=== PATIENT | female | born 1945 | race Caucasian/White ===

== ENCOUNTER 2016-04-19 11:21 | Inpatient (IN) | payer MEDICARE ==
[~2016-04-19] VITALS: Ht 172.7 cm; Wt 54.6 kg
[~2016-04-19 11:21] MED LIST: ATOR10TA65 PO; CITA20TA6 PO; RISP1TAB3 PO
[2016-04-19] MEDS ORDERED: IBUPROFEN 600 MG TAB PO ONE (11:30)
[2016-04-19] MEDS ORDERED: morphine 2 MG INJ IV STA (12:13)
[2016-04-19] MEDS ORDERED: ONDANSETRON 4 MG INJ IV STA (12:13)
[2016-04-19] MEDS ORDERED: SOD CHLORIDE 0.9% 500 ML IV STA (12:13)
[2016-04-19] MEDS ORDERED: AMLO5TAB4 PO (12:28)
[2016-04-19] MEDS ORDERED: DIVA250T4 PO (12:28)
[2016-04-19] MEDS ORDERED: QUET25TA33 PO (12:29)
[2016-04-19] MEDS ORDERED: PANT40TA3 PO (12:29)
--- NOTE | 2016-04-19 12:43 | RADRPT ---
PROCEDURE: Chest Radiograph. CLINICAL INDICATION: Chest pain TECHNIQUE: Single frontal chest radiograph. COMPARISON: Chest radiograph 06/25/2015 FINDINGS: The patient is rotated. Heart size is grossly within normal limits. No infiltrate or effusion is seen. The bones are intact. IMPRESSION: 1. No evidence of acute cardiopulmonary disease. RPTAT: KK .Lai Lerner MD, MD Date Time Electronically viewed and signed by .Lai Lerner MD, on 04/19/2016 12:42 .B/
--- NOTE | 2016-04-19 12:48 | RADRPT ---
PROCEDURE: XR Pelvis. CLINICAL INDICATION: Pain/injury TECHNIQUE: Single AP view performed. COMPARISON: No prior studies are available for comparison. FINDINGS: There is diffuse osteopenia. There is an acute right intertrochanteric fracture with a varus deform ity. There is been a previous ORIF of the left hip with an intramedullary suresh and a dynamic jenny leona screw. The sacroiliac joints are unremarkable. The soft tissues are unremarkable. IMPRESSION: Diffuse osteopenia Acute right intertrochanteric fracture with a varus deformity. Previous ORIF of the left hip with an intramedullary suresh and a dynamic compression screw RPTAT: HGDB .Tong Soares MD, Date Time Electronically viewed and signed by .Tong Soares MD, on 04/19/2016 12:48 .B/
--- NOTE | 2016-04-19 12:50 | RADRPT ---
PROCEDURE: XR right hip. CLINICAL INDICATION: Pain/injury TECHNIQUE: Two views available for review. COMPARISON: None available FINDINGS: There is diffuse osteopenia. There is an acute right intertrochanteric fracture with a varus deform ity. No osseous lesions are identified. The joints are unremarkable. The soft tissues are unremar kable. IMPRESSION: Diffuse osteopenia Acute right intertrochanteric fracture with a varus deformity RPTAT: DB .Tong Soares MD, MD Date Time Electronically viewed and signed by .Tong Soares MD, on 04/19/2016 12:50 .B/
--- NOTE | 2016-04-19 12:51 | RADRPT ---
PROCEDURE: XR right tibia/fibula. CLINICAL INDICATION: Leg pain /injury TECHNIQUE: Two views available for review. COMPARISON: None available FINDINGS: There is diffuse osteopenia. No fractures are identified. No osseous lesions are identified. The joints are unremarkable. The soft tissues are unremarkable. IMPRESSION: Diffuse osteopenia Otherwise unremarkable examination RPTAT: HGDB .Tong Soares MD, MD Date Time Electronically viewed and signed by .Tong Soares MD, on 04/19/2016 12:51 .B/
[2016-04-19 13:01] LABS: ADD SCAN DIFF NO; BASOPHIL # 0.1 10^3/ul (0.0-0.1); BASOPHILS % 0.6 % (0.0-2.0); EOSINOPHILS # 0.1 10^3/ul (0.0-0.5); EOSINOPHILS % 0.6 % (0.0-7.0); HEMATOCRIT 30.4 % (37.0-47.0); HEMOGLOBIN 9.3 g/dl (12.0-16.0); LYMPHOCYTES % 10.9 % (15.0-51.0); MEAN CORPUSCULAR HEMOGLOBIN 32.4 pg (29.0-33.0); MEAN CORPUSCULAR HGB CONC 30.6 g/dl (32.0-37.0); MEAN CORPUSCULAR VOLUME 105.9 fl (82.0-101.0); MONOCYTE # 0.5 10^3/ul (0.3-0.9); MONOCYTES % 5.2 % (0.0-11.0); NEUTROPHIL # 7.4 10^3/ul (1.6-7.5); NEUTROPHILS % 81.8 % (39.0-77.0); PLATELET COUNT 117 10^3/UL (140-415); RED BLOOD COUNT 2.87 10^6/ul (4.20-5.40)
--- NOTE | 2016-04-19 13:04 | ERA ---
ER Documentation Chief Complaint Date/Time DATE: 04/19/16 TIME: 12:55 Chief Complaint BROUGHT IN VIA EMS DUE TO MECHANICAL FALL AT HOME HPI This is a 71-year-old female that presents to the emergency department from her significant facility after she had a witnessed mechanical slip and fall from her wheelchair landing on her right hip. The patient is known history of bipolar disorder, chronic kidney disease, anemia of chronic disease, gastroesophageal reflux disease. Given that the patient has known history of dementia she is unable to provide any further history. EMS indicated that the patient appeared to have significant amount discomfort when she was placed onto the gurney complaining of pain over her right hip. She was unable to ambulate. She did not hit her head or lose consciousness according to nurses at her sniff facility. ROS All systems reviewed and are negative except as per history of present illness. Medications Home Meds Reported Medications Quetiapine Fumarate* (Quetiapine Fumarate*) 25 Mg Tablet, 25 MG PO BID, TAB 04/19/16 Pantoprazole* (Protonix*) 40 Mg Tablet.dr, 40 MG PO DAILY, TAB 04/19/16 Amlodipine Besylate* (Norvasc*) 5 Mg Tablet, 5 MG PO DAILY, TAB 04/19/16 Divalproex Sodium* (Depakote ER*) 250 Mg Tabsr, 250 MG PO BID, #30 TAB.SA 04/19/16 Citalopram Hydrobromide* (Citalopram Hydrobromide*) 20 Mg Tablet, 20 MG PO DAILY , TAB 06/29/14 Discontinued Reported Medications Risperidone* (Risperidone*) 1 Mg Tablet, 1 MG PO QHS, TAB 06/29/14 Atorvastatin Calcium (Atorvastatin Calcium) 10 Mg Tab, 10 MG PO HS, TAB 04/21/14 Allergies Allergies: Coded Allergies: No Known Drug Allergies (Verified Allergy, Mild, 04/19/16) PMhx/Soc History of Surgery: No Anesthesia Reaction: No Hx Neurological Disorder: Yes (Mild cognitive impairment, bipolar disorder) Hx Respiratory Disorders: No Hx Cardiac Disorders: Yes (HTN) Hx Psychiatric Problems: Yes (BIPOLAR) Hx Miscellaneous Medical Probl: Yes (bipolar d/o, CKD, anemia, ) Hx Alcohol Use: No Hx Substance Use: No Hx Tobacco Use: No Smoking Status: Never smoker Physical Exam Vitals Vital Signs Date Time Temp Pulse Resp B/P Pulse Ox O2 Delivery O2 Flow Rate FiO2 04/19/16 13:35 98.2 84 16 146/87 95 Room Air 04/19/16 11:25 98.2 80 16 116/74 96 Physical Exam Constitutional:Well-developed. Well-nourished. HEENT:Normocephalic. Atraumatic.Pupils were equal round reactive to light. Moist mucous membranes.No tonsillar exudates. No nasoseptal hematoma. No hemotympanum. Neck: No nuchal rigidity. No lymphadenopathy. No posterior cervical spine tenderness or step-offs. Respiratory: Not using accessory muscles of respiration.Lungs were clear to auscultation bilaterally. No rhonchi. No rales. No wheezing. Cardiovascular: Regular rate regular rhythm.No murmurs. No rubs were appreciated.S1, S2 normal. Distal pulses are palpable 2+ bilaterally. GI: Abdomen was soft. Nontender. Non Distended. No pulsatile abdominal masses or bruits. No rebound. No guarding. Bowel sounds were present and normal. No flank ecchymosis. No periumbilical ecchymosis Muscle skeletal: Full range of motion of both the upper extremities bilaterally. No laxity on anterior posterior lateral compression of the pelvis. Right lower extremity was shortened and externally rotated with tenderness over the right proximal hip. Skin: No petechia, no purpura. No lesions on the palms or the soles of the feet. No maculopapular rash. NEURO: Patient was alert but did not follow verbal command. This is the patient 's baseline according to nursing staff notes. Patient was unable to ambulate due to the obvious bony deformity of her right hip Result Diagram: 04/19/16 1245 04/19/16 1245 Results 24 hrs Laboratory Tests Test 04/19/16 12:45 Activated Partial Thromboplast Time 29.2Sec Alanine Aminotransferase (ALT/SGPT) 81IU/L Albumin 4.0g/dl Albumin/Globulin Ratio 0.95 Alkaline Phosphatase 186IU/L Anion Gap 23 Aspartate Amino Transf (AST/SGOT) 26IU/L Basophils # 0.110^3/ul Basophils % 0.6% Blood Urea Nitrogen 55mg/dl Calcium Level 10.2mg/dl Carbon Dioxide Level 26mmol/L Chloride Level 119mmol/L Creatinine 4.03mg/dl Direct Bilirubin 0.00mg/dl Eosinophils # 0.110^3/ul Eosinophils % 0.6% Globulin 4.20g/dl Glucose Level 112mg/dl Hematocrit 30.4% Hemoglobin 9.3g/dl INR International Normalized Ratio 1.09 Indirect Bilirubin 0.0mg/dl Lymphocytes # 1.010^3/ul Lymphocytes % 10.9% Mean Corpuscular Hemoglobin 32.4pg Mean Corpuscular Hemoglobin Concent 30.6g/dl Mean Corpuscular Volume 105.9fl Mean Platelet Volume 13.0fl Monocytes # 0.510^3/ul Monocytes % 5.2% Neutrophils # 7.410^3/ul Neutrophils % 81.8% Nucleated Red Blood Cells # 0.010^3/ul Nucleated Red Blood Cells % 0.0/100WBC Platelet Count 16176^3/UL Potassium Level 6.0mmol/L Prothrombin Time 14.1Sec Prothrombin Time Ratio 1.1 Red Blood Count 2.8710^6/ul Red Cell Distribution Width 14.0% Sodium Level 162mmol/L Total Bilirubin 0.0mg/dl Total Protein 8.2g/dl Troponin I < 0.012ng/ml White Blood Count 9.010^3/ul Current Medications Medications (Trade) Dose Ordered Sig/Britta Route PRN Reason Start Time Stop Time Status Last Admin Dose Admin Ibuprofen 600 mg 600 mg ONCE ONCE PO 04/19/16 11:30 04/19/16 11:31 Cancel Sodium Chloride (NS) 500 ml @ 500 mls/hr Q1H STAT IV 04/19/16 12:13 04/19/16 13:12 DC 04/19/16 13:33 Morphine Sulfate (morphine) 2 mg ONCE STAT IV 04/19/16 12:13 04/19/16 12:15 DC 04/19/16 13:33 Ondansetron HCl 4 mg 4 mg ONCE STAT IV 04/19/16 12:13 04/19/16 12:15 DC 04/19/16 13:33 Sodium Chloride 1,000 ml @ 1,000 mls/hr Q1H STAT IV 04/19/16 13:44 04/19/16 14:43 04/19/16 13:56 Sodium Chloride (NS) 1,000 ml @ 1,000 mls/hr Q1H STAT IV 04/19/16 13:54 04/19/16 14:53 Procedures/MDM This patient presented to the emergency department with a mechanical slip and fall. The patient did have an obvious bony deformity of her right hip and after radiographic imaging was obtained that the patient had a closed right acute intertrochanteric fracture with a varus deformity. The patient was immediately placed in a call center professional continuous pulse oximetry and IV access was established by nursing staff. The patient received intravenous morphine and Zofran for analgesia control and was also given a liter bolus of 0.9 normal saline. Ancillary laboratory work for preoperative labs was obtained. The patient had a previous left open reduction internal fixation of her hip in June 2014. The patient will be admitted in serious condition to her primary care physician Dr. Garcia who is taking call for Dr. Patel. The patient will go to the telemetry service in serious condition with anticipated stay of greater than 2 midnights. The patient will be admitted to the telemetry service given the fact that she is hypernatremic and will require cardiac monitoring. 12 Lead EKG tracing ordered and reviewed by myself showed: Normal sinus rhythm of 84 bpm and no arrhythmia. WA interval normal. QRS duration normal. No ST segment elevation No ST segment depression. No changes consistent with acute ischemia. Critical Care: Time: 40 minutes Treatments/Evaluations: Close monitoring and treatment of unstable vital signs, cardiorespiratory, and neurologic status, while maintaining tight balance of fluid, respiratory, and cardiac interventions. Time does not include performing any of the above billable procedures. Departure Diagnosis: Primary Impression: Closed intertrochanteric fracture of right hip Qualified Code: S72.141A - Closed intertrochanteric fracture of right hip, initial encounter Additional Impressions: Hypernatremia Acute kidney injury Condition: Serious ANDREA WILEY Apr 19, 2016 13:04
[2016-04-19 13:13] LABS: CREATININE 4.03 mg/dl (0.44-1.00)
[2016-04-19 13:14] LABS: ALANINE AMINOTRANSFERASE 81 IU/L (13-69); ALBUMIN/GLOBULIN RATIO 0.95; ALKALINE PHOSPHATASE 186 IU/L (42-121); ASPARTATE AMINO TRANSFERASE 26 IU/L (15-46); BLOOD UREA NITROGEN 55 mg/dl (7-20); CARBON DIOXIDE 26 mmol/L (21-31); GLUCOSE 112 mg/dl (70-220); TOTAL PROTEIN 8.2 g/dl (6.1-8.1)
[2016-04-19 13:15] LABS: CALCIUM 10.2 mg/dl (8.4-10.2)
[2016-04-19 13:21] LABS: INR 1.09; PARTIAL THROMBOPLASTIN TIME 29.2 Sec (25.0-35.0); PROTIME 14.1 Sec (12.2-14.2); PT RATIO 1.1
[2016-04-19 13:36] LABS: TROPONIN-I < 0.012 ng/ml (0.00-0.12)
[2016-04-19 13:40] LABS: ANION GAP 23 (8-16); CHLORIDE 119 mmol/L (97-110)
[2016-04-19 13:43] LABS: SODIUM 162 mmol/L (135-144)
[2016-04-19] MEDS ORDERED: SOD CHLORIDE 0.9% 1,000 ML IV STA ×2 (13:44→13:54)
[2016-04-19] MEDS ORDERED: ACETAMINOPHEN 325 MG TAB PO PRN ×2 (14:00→15:30)
[2016-04-19] MEDS ORDERED: ONDANSETRON 4 MG INJ IV PRN (14:00)
[2016-04-19 15:31] LABS: ADD UMIC YES; URINE BILIRUBIN (Dip) NEGATIVE (NEGATIVE); URINE BLOOD (Dip) TRACE (NEGATIVE); URINE COLOR LT. YELLOW (YELLOW); URINE GLUCOSE (Dip) NEGATIVE (NEGATIVE); URINE KETONES (Dip) NEGATIVE (NEGATIVE); URINE LEUKOCYTE ESTERASE (Dip) 3+ (NEGATIVE); URINE NITRITE (Dip) NEGATIVE (NEGATIVE); URINE TOTAL PROTEIN (Dip) 2+ (NEGATIVE); URINE UROBILINOGEN (Dip) 0.2 E.U./dL (0.1-1.0)
[2016-04-19 15:49] LABS: BACTERIA,URINE MODERATE; SQUAMOUS EPITHELIAL CELL,UR RARE; URINE RBCS 0-2 /HPF (0)
[2016-04-19] MEDS: SOD CHLORIDE 0.45% 1,000 ML IV SCH (16:09)
[2016-04-19 16:10] LABS: CREATININE 3.96 mg/dl (0.44-1.00)
[2016-04-19 16:11] LABS: CALCIUM 10.3 mg/dl (8.4-10.2)
[2016-04-19 16:14] LABS: POTASSIUM 6.4 mmol/L (3.5-5.1)
--- NOTE | 2016-04-19 16:47 | HP ---
DATE OF ADMISSION: 04/19/2016 CHIEF COMPLAINT: Right hip fracture, acute kidney injury, hyperkalemia, hypernatremia. HISTORY OF PRESENT ILLNESS: This is a 71-year-old female with a past medical history of bipolar disorder, history of chronic kidney disease stage IV/V with a baseline creatinine around 3 mg/dL, history of anemia, history of GERD, history of recurrent falls who was brought into [facility] Emergency Room after patient had a noted mechanical fall from her wheelchair, landing on her right hip. The patient upon arrival to the emergency room was noted to be confused and had pain in her right hip. The patient had imaging studies of her right hip which showed findings of intratrochanteric fracture with varus deformity. LABORATORY DATA: Labs drawn showed a sodium of 162, potassium 6.0, chloride 119 , BUN 55, creatinine 4.03. The patient had a chest x-ray which showed no acute findings, a tib/fib fracture which was otherwise unremarkable. In the emergency room, the patient was given IV fluids. She received 2 1/2 liters and was given morphine p.r.n. for pain. There were no reports of hemoptysis, hemetemesis, hematochezia. No fevers, no chills. The patient herself is confused and is able to provide limited history. PAST MEDICAL HISTORY: As stated above, history of bipolar disorder, psychiatric disorder, anemia, chronic kidney disease stage IV/V, history of anemia. ALLERGIES: NO KNOWN DRUG ALLERGIES. SOCIAL HISTORY: Lives at a skilled nurse facility, the patient has history of smoking. PAST SURGICAL HISTORY: Status post left hip ORIF, appendectomy, previous EGD. MEDICATIONS: The patient's medications have been reviewed. REVIEW OF SYSTEMS: Unable to do adequate review of systems as patient is altered. Pertinent positives obtained by reviewing medical records and speaking to hospital staff, stated in HPI, otherwise negative. PHYSICAL EXAMINATION: VITAL SIGNS: Blood pressure is currently 146/87, respirations 16, pulse 84, temperature 98.2. HEENT: Head is normocephalic. Pupils are reactive to light. NECK: Supple. HEART: Regular rate. LUNGS: Show diminished breath sounds at base. ABDOMEN: Soft, nontender to palpation. Questionable hernia. No rebound or guarding. EXTREMITIES: Negative for clubbing, cyanosis, or edema. DERMATOLOGIC: No rashes. MUSCULOSKELETAL: Positive tenderness to palpation right hip. NEUROLOGIC: Limited exam, but no obvious focal deficits. LABORATORY DATA: Shows sodium 162, potassium 6.0, chloride 119, BUN 55, creatinine 4.03. White count 9.9, hemoglobin 9.3, hematocrit 30.4, platelet count is 117. IMAGING STUDIES: As stated in HPI. ASSESSMENT AND PLAN: This is a 71-year-old female who presents with: 1. Status post fall with right intertrochanteric fracture. Plan at this point is to get an orthopedic consult with Dr. Brennan for evaluation. The patient will seek pain control with morphine p.r.n. for pain. Will also place a cardiac consult with Dr. Minor for cardiac clearance. 2. Nonoliguric acute kidney injury on top of chronic kidney disease stage V/ with previous baseline creatinine around 3.2 mg/dL. Etiology of current acute kidney injury is secondary to volume depletion and dehydration. The possibility of tubular injury is a consideration. Underlying etiology of CKD is due to previous nephrotoxic exposure. Plan at this point is to check a UA with microanalysis to rule out any evidence of active sediment. We will also check a renal ultrasound to evaluate renal parenchyma and rule out obstruction, although suspicion is low. Will quantify the patient's proteinuria by checking a protein/creatinine ratio and albumin/creatinine ratio. Would continue IV hydration with half NS at 125 mL an hour. Will monitor I's and O's closely. If patient's renal function should further decline and/or if hyperkalemia does not improve, would consider renal replacement therapy. 3. Hyperkalemia secondary to acute kidney injury. Plan at this point is to continue aggressive IV hydration, the patient's urinary output has been above 400 mL. Will repeat a renal panel. If potassium levels do not improve, will give the patient calcium gluconate, IV insulin, sodium bicarbonate as well as albuterol treatment. His potassium levels are not manageable with medical management, would then consider renal replacement therapy. 5. Hypernatremia. The patient has a free water deficit of approximately 4 liters. Etiology is likely due to insensible losses. Diabetes insipidus is a possibility. Plan at this point is to start the patient on hypotonic fluid once the patient's volume replete. Will monitor serum sodium levels closely, ensuring correction of no more than 8 to 12 mEq in a 24-hour period. Will check urine osmolarity, urine lytes 6. Acute encephalopathy on top of history of depression and psychosis. Etiology of encephalopathy is multifactorial due to toxic metabolic, severe hypernatremia. Will correct underlying electrolyte abnormality as stated above. Will defer psychotropic medications at this time and monitor. 7. History of hypertension. The patient is currently volume depleted. Continue IV fluids. Will hold blood pressure medications. 8. Anemia of chronic disease. Continue to monitor hemoglobin and hematocrit levels. Will give Epogen as needed. 9. Mineral bone disorder, will monitor calcium and phosphorus levels. Defer phosphate binders at this time. 10. Previous history of diverticulosis and GI bleed. Dictated By: BASIL HARDWICK/NTS Conf#: [id number] DID#: [id number] MTDD
--- NOTE | 2016-04-19 17:40 | RADRPT ---
PROCEDURE: US renal. CLINICAL INDICATION: Acute kidney injury. TECHNIQUE: Multiple sonographic images of the retroperitoneum were obtained. Evaluation of the ki dneys and bladder was performed using a curved array transducer. The images were reviewed on a PACS workstation. COMPARISON: CT dated 01/28/2016. FINDINGS: The right kidney measures 9.2 cm in length. The left kidney measures 6.4 cm in length. Both kidneys demonstrate increased echogenicity. There is no hydronephrosis, nephrolithiasis, or renal mass. The bladder is decompressed with a Jennings catheter in place. IMPRESSION: 1. Bilateral echogenic kidneys, consistent with medical renal disease. 2. Asymmetric atrophy of the left kidney. RPTAT: HLBP .Subhash Omalley MD, MD Date Time Electronically viewed and signed by .Subhash Omalley MD, MD on 04/19/2016 17:40 .P/
[2016-04-19 17:47] VITALS: TEMP 98.4
[2016-04-19 18:00] LABS: POTASSIUM 5.8 mmol/L (3.5-5.1)
[2016-04-19] MEDS ORDERED: morphine 2 MG INJ IV ONE (18:00)
[2016-04-19 18:02] LABS: CREATININE 3.33 mg/dl (0.44-1.00)
[2016-04-19 18:03] LABS: CALCIUM 9.4 mg/dl (8.4-10.2)
[2016-04-19 18:58] VITALS: Ht 172.7 cm; Wt 54.6 kg
[2016-04-19 18:59] VITALS: BP 190/83; PULSE 92; RESP 16
[2016-04-19 19:01] VITALS: PULSE 89
[2016-04-19 20:27] VITALS: PULSE 89
[2016-04-19 20:51] VITALS: BP 182/81; RESP 17
[2016-04-19] MEDS: morphine 2 MG INJ IV PRN (21:36)
[2016-04-20] VITALS (12 sets, daily range): BP systolic 79–174; BP diastolic 45–96; PULSE 86–91; RESP 16–19
[2016-04-20] MEDS: SOD CHLORIDE 0.45% 1,000 ML IV SCH ×2 (01:04→05:26)
[2016-04-20] MEDS: morphine 2 MG INJ IV PRN ×3 (02:43→18:19)
[2016-04-20] MEDS: PANTOPRAZOLE 40 MG INJ IV SCH (06:49)
[2016-04-20 07:35] LABS: ADD SCAN DIFF NO
[2016-04-20 07:38] LABS: ABNORMAL IP MESSAGE 1; HEMATOCRIT 22.9 % (37.0-47.0); MEAN CORPUSCULAR HEMOGLOBIN 31.2 pg (29.0-33.0); MEAN CORPUSCULAR HGB CONC 29.3 g/dl (32.0-37.0); MEAN CORPUSCULAR VOLUME 106.5 fl (82.0-101.0); MEAN PLATELET VOLUME 13.2 fl (7.4-10.4); PLATELET COUNT 92 10^3/UL (140-415); RED BLOOD COUNT 2.15 10^6/ul (4.20-5.40); RED CELL DISTRIBUTION WIDTH 14.1 % (11.5-14.5); WHITE BLOOD COUNT 7.8 10^3/ul (4.8-10.8)
[2016-04-20 07:48] LABS: POTASSIUM 5.4 mmol/L (3.5-5.1)
[2016-04-20 07:51] LABS: CREATININE 3.46 mg/dl (0.44-1.00)
[2016-04-20 07:52] LABS: CALCIUM 9.6 mg/dl (8.4-10.2); MAGNESIUM 2.2 mg/dl (1.7-2.5); PHOSPHORUS 4.1 mg/dl (2.5-4.9)
[2016-04-20 07:56] LABS: HEMOGLOBIN 6.7 g/dl (12.0-16.0)
[2016-04-20] MEDS ORDERED: SOD CHLORIDE 0.9% 250 ML IV* ONE (07:59)
[2016-04-20] MEDS: DEXTROSE 5% 1,000 ML IV SCH ×2 (08:17→21:20)
--- NOTE | 2016-04-20 08:52 | PN ---
DATE: 04/20/2016 SUBJECTIVE: The patient appears more clinically stable, no acute events overnight. No hemoptysis, hematemesis, or hematochezia. The patient is complaining about pain. The patient still remains confused. OBJECTIVE: VITAL SIGNS: Blood pressure 166/81, respirations 17, pulse 88, temperature 98.8. HEENT: Head is normocephalic. NECK: Supple. HEART: Regular rate. LUNGS: Show diminished breath sounds at the base. ABDOMEN: Soft, nontender to palpation. No rebound or guarding. EXTREMITIES: Negative for clubbing, cyanosis. No edema. DERMATOLOGIC: No rashes. MUSCULOSKELETAL: No joint effusions. NEUROLOGIC: No change in exam. MEDICATIONS: The patient's medications have been reviewed. LABORATORY DATA: Currently pending. ASSESSMENT AND PLAN: 1. Status post mechanical fall with right intertrochanteric fracture. The patient is currently stable. Plan is to get an orthopedic consult with Dr. Brennan. Will continue pain control, DVT prophylaxis with sequential leg squeezers. Cardiac consult was placed for doctor clearance. 2. Nonoliguric acute kidney injury on top of chronic kidney disease, stage IV/ V with a previous baseline creatinine around 3.2 mg/dL. Etiology of acute kidney injury is secondary to volume depletion, dehydration, possible tubular injury. The patient's urinalysis shows no active sediment, FENa greater than 1% . The patient's renal ultrasound shows echogenic kidneys, but no obstruction. At this point, will continue current treatment plan. Continue IV fluids, continue supportive care, renally dose all meds. Will monitor renal closely. There is no immediate need for renal replacement therapy at this time. 3. Hyperkalemia secondary to acute kidney injury. The patient's potassium levels have been improving. We will continue to monitor closely. If remains elevated, would consider temporizing measures with insulin, albuterol, sodium bicarbonate, diuretic therapy, and/or Kayexalate. If hypercalcemia is recalcitrant to medical management, we will consider renal replacement therapy. 4. Hypernatremia. The patient has free water deficit of approximately 4 L. Sodium levels have been improving although slowly. Follow up urine osmolarity. Will increase rate of hypotonic fluids 5. Acute encephalopathy on top of history of dementia. Etiology is secondary acute kidney injury and hypernatremia. Continue current medical management, monitor closely. 6. Hypertension. Etiology is multifactorial in part due to pain. Continue current pain regimen. Continue blood pressure regimen. 7. Anemia of chronic disease. Continue to monitor hemoglobin and hematocrit levels. 8. Mineral bone disorder. Continue to monitor calcium and phosphorus levels. 9. Previous history of diverticulosis, gastrointestinal bleed. 10. Gastrointestinal and deep venous thrombosis prophylaxis. Continue proton pump inhibitor and sequential leg squeezers. Dictated By: BASIL MILLER DO NR/NTS Conf#: [id number] DID#: [id number] MTDD
[2016-04-20] MEDS ORDERED: AMLODIPINE 5 MG TAB PO SCH (09:00)
--- NOTE | 2016-04-20 10:45 | RADRPT ---
Echocardiogram Report Patient Name: DELMY VICTOR Gender: Female Date: 1945 Study Date: 20-Apr-2016 [employer] Coordinator: [facility] Location: [address] Ref. Physician: DINORA MINOR Quality: Good Procedures: Transthoracic echocardiogram with complete 2D, M-Mode, and doppler examination. Indications: Pre-op. 2D/M Mode Doppler Measurement Value Normal Ranges Measurement Value Normal Ranges LVIDd 2D 3.8 3.5 - 5.6 cm AV Mean Marek 1.3 m/sec LVIDs 2D 2.8 2.1 - 4.1 cm AV Mean PG 9.1 mmHg LVPWd 2D 1.3 0.6 - 1.1 cm AV Peak Marek 2.2 m/sec IVSd 2D 1.3 0.6 - 1.1 cm AV Peak PG 19.1 mmHg AoR Diam 2D 2.6 2.0 - 3.7 cm AV VTI 46.3 cm EDV 2D 61.3 cm3 LVOT Peak Marek 1.7 m/sec ESV 2D 22.8 cm3 LVOT Peak PG 11.3 mmHg MV E Peak Marek 0.9 m/sec MV A Peak Marek 1.1 m/sec MV E/A 0.8 MV Decel Time 217 msec MV Decel Nicholas 4 MV E/A 0.8 Findings Left Ventricle: Hyperdynamic left ventricular systolic function. Normal left ventricular cavity size. Mild concentric left ventricular hypertrophy. Ejection fraction is visually estimated at 65 %. Tissue Doppler/Mitral Doppler indices are consistent with impaired relaxation (Stage I diastolic dysfunction). Right Ventricle: Prominent moderator band - normal variant. Left Atrium: The left atrium is normal in size. Right Atrium: The right atrium is normal in size. Mitral Valve: Mild mitral leaflet calcification. Mild mitral annular calcification. Trace mitral regurgitation. Aortic Valve: Trileaflet aortic valve. Trace aortic valve regurgitation. Tricuspid Valve: Tricuspid valve not well visualized. There is trace tricuspid regurgitation. Pulmonic Valve: Pulmonic valve not well visualized. There is trace pulmonic regurgitation. Pericardium: Normal pericardium with no significant pericardial effusion. Aorta: Normal aortic root. IVC: Dilated IVC with respiratory collapse consistent with elevated right atrial pressure. Conclusions 1.Hyperdynamic left ventricular systolic function. Normal left ventricular cavity size. Mild concentric left ventricular hypertrophy. Ejection fraction is visually estimated at 65 %. Tissue Doppler/Mitral Doppler indices are consistent with impaired relaxation (Stage I diastolic dysfunction). 2.Mild mitral leaflet calcification. Mild mitral annular calcification. Trace mitral regurgitation. 3.Trileaflet aortic valve. Trace aortic valve regurgitation. 4.Tricuspid valve not well visualized. There is trace tricuspid regurgitation. Electronically Signed By: Dinora Minor 20-Apr-2016 10:45:02 -0800 Patient Name: DELMY VICTOR Study Date: 20-Apr-2016 [id number]
[2016-04-20 11:00] LABS: PLATELET ESTIMATE PLT APPEAR DECREASED
[2016-04-20] MEDS: AMLODIPINE 10 MG TAB PO SCH (11:00)
--- NOTE | 2016-04-20 11:32 | CONS ---
DATE OF ADMISSION: 04/19/2016 DATE OF CONSULTATION: 04/20/2016 CARDIOLOGY CONSULTATION:. REASON FOR CONSULTATION: Cardiovascular preop evaluation. CHIEF COMPLAINT: Status post fall, hip fracture. HISTORY OF PRESENT ILLNESS: Thank you for this referral. History obtained from the patient who is a poor historian, extensive review of the old chart, discussion with Dr. Garcia and staff. She is a pleasant 71-year-old female with history of chronic kidney disease, history of falls in the past, and hip fracture in the past who came to emergency room with the above complaint. The patient appar ently has fallen. Denies any syncope or presyncope to me. Has had a hip fracture. She also has mu ltiple abnormalities including high potassium ____ renal failure. The patient is being evaluated fo r orthopedic surgery. The patient is not able to walk much in general, but denies any chest pain or pressure to me. Denies any complication of previous surgeries. PAST MEDICAL HISTORY: History of chronic kidney disease. Creatinine baseline about 3. History of hip fracture and surgery, history of bipolar disorder, gastroesophageal reflux disease, anemia. SOCIAL HISTORY: The patient lives in a [place] [facility]. Does not smoke or drink. Smoked in the past though. FAMILY HISTORY: No reported early coronary artery disease. SURGICAL HISTORY: Status post hip surgery, appendectomy, EGD done. ALLERGIES: NO KNOWN ALLERGIES. MEDICATIONS: As per medical reconciliation, personally reviewed. REVIEW OF SYSTEMS: She denied all other except for the above-mentioned. PHYSICAL EXAMINATION: VITAL SIGNS: Temperature 98.8, heart rate of 89, blood pressure 166/81, respiratory rate of 18, sat urating 95%. GENERAL: Thin female. HEENT: Normocephalic, atraumatic. Pupils are equal. CARDIOVASCULAR: Regular rate and rhythm, systolic murmur. PULMONARY: Anteriorly with no wheezes. GASTROINTESTINAL: Soft, nontender. EXTREMITIES: With no significant edema. NEUROLOGIC: Awake, responds appropriately to person and place. PSYCHIATRIC: Appears to be calm and pleasant. LABORATORY: WBC of 7.8, hemoglobin 6.7, platelets of 92. Sodium 160, potassium 5.4. Initially pot assium was as high as 6.4, BUN of 45, creatinine of 3.46, glucose of 88. Echocardiogram was persona lly reviewed, which showed normal LV size and ejection fraction about 65%. EKG showed normal sinus rhythm, normal ECG. Chest x-ray showed no acute cardiopulmonary disease. Hip x-ray shows acute right intratrochanteric fracture with varus deformity. ASSESSMENT AND PLAN: 1. Cardiovascular, preop evaluation. 2. Hip fracture. 3. Severe anemia. 4. Renal failure, acute on chronic. 5. Hyperkalemia. 6. History of bipolar disorder. 7. Encephalopathy, memory impairment. RECOMMENDATIONS: Transfusion as per internal medicine. Blood pressure currently under fair control on amlodipine of 10. The patient has multiple risk factors which will place her at least at modera te risk of cardiovascular event for above surgery. However, no further cardiac workup would be brian cated or felt to be beneficial for the patient at this point. Recommend, however, transfusion prior to the surgery. Dictated By: DINORA CARLSON/BERTIN Conf#: [id number] DID#: [id number] CC: BASIL GARCIA DO;*EndCC*
[2016-04-20 15:12] LABS: POTASSIUM 5.4 mmol/L (3.5-5.1)
[2016-04-20 15:14] LABS: CREATININE 3.5 mg/dl (0.44-1.00)
[2016-04-20 15:15] LABS: CALCIUM 9.7 mg/dl (8.4-10.2)
[2016-04-20 16:37] LABS: MICROALBUMIN 46.8 mg/dL
[2016-04-20] MEDS: HYDROCODONE/APAP (5/325) TAB PO PRN (20:59)
[2016-04-21] VITALS (12 sets, daily range): BP systolic 146–174; BP diastolic 72–88; PULSE 84–88; RESP 16–20
--- NOTE | 2016-04-21 01:37 | CONS ---
DATE OF ADMISSION: 04/19/2016 DATE OF CONSULTATION: 04/20/2016 HISTORY OF PRESENT ILLNESS: The patient is a 71-year-old female with a known history of chronic dis ease, on dialysis, who was admitted on 04/19/2016 when she was brought into the emergency room nu yu of the painful limit of motion involving her right hip, which developed following her mechanical fall from her wheelchair landing on her right hip. In addition to full chronic kidney disease, she is known to have other medical problems including a history of bipolar disorder, GERD, and anemia. She was also showing nonoliguric acute kidney injury superimposed on her chronic kidney disease. She also had a left hip fracture, which was treated wi th open reduction and internal fixation in the past. PHYSICAL EXAMINATION: GENERAL: My examination revealed a 71-year-old female who was not in any acute pain at this time. However, she was not able to participate in the history taking and physical examination because she was altered. MUSCULOSKELETAL: There was tenderness and swelling around the right hip. Her right lower extremity was shortened and externally rotated. Range of motion of the right hip was not tested because of t he obvious pain. There were no signs of acute neurovascular compromise involving the right lower ex tremity. IMAGING: X-rays of the right hip revealed a displaced intertrochanteric fracture. There were signs of old left hip fracture, which was treated with the open reduction and internal fixation with sati sfactory healing. DIAGNOSTIC IMPRESSION OF THE ORTHOPEDIC SURGICAL PROBLEM: Intertrochanteric fracture of the right h ip, displaced. TREATMENT PLAN: To surgery for open reduction and internal fixation of the intertrochanteric fractu re of the right hip when she can be medically cleared for surgery. Dictated By: BENITA RODRÍGUEZ/BERTIN Conf#: [id number] DID#: [id number] CC: BASIL MILLER DO;*EndCC*
[2016-04-21] MEDS: morphine 2 MG INJ IV PRN ×3 (04:06→17:40)
[2016-04-21] MEDS: DEXTROSE 5% 1,000 ML IV SCH ×2 (05:55→10:06)
[2016-04-21] MEDS: PANTOPRAZOLE 40 MG INJ IV SCH (05:55)
[2016-04-21] MEDS ORDERED: SOD CHLORIDE 0.9% 250 ML IV* ONE (06:21)
[2016-04-21 07:57] LABS: ADD SCAN DIFF NO
[2016-04-21 07:58] LABS: ABNORMAL IP MESSAGE 1; BASOPHIL # 0.1 10^3/ul (0.0-0.1); BASOPHILS % 0.5 % (0.0-2.0); EOSINOPHILS # 0.1 10^3/ul (0.0-0.5); EOSINOPHILS % 0.9 % (0.0-7.0); HEMATOCRIT 29.4 % (37.0-47.0); HEMOGLOBIN 9.3 g/dl (12.0-16.0); LYMPHOCYTES # 0.9 10^3/ul (0.8-2.9); LYMPHOCYTES % 10.1 % (15.0-51.0); MEAN CORPUSCULAR HGB CONC 31.6 g/dl (32.0-37.0); MEAN PLATELET VOLUME 13.7 fl (7.4-10.4); MONOCYTE # 1.2 10^3/ul (0.3-0.9); MONOCYTES % 12.4 % (0.0-11.0); NEUTROPHILS % 74.6 % (39.0-77.0); RED BLOOD COUNT 2.91 10^6/ul (4.20-5.40); RED CELL DISTRIBUTION WIDTH 16.3 % (11.5-14.5); WHITE BLOOD COUNT 9.3 10^3/ul (4.8-10.8)
[2016-04-21 08:01] LABS: PLATELET COUNT 75 10^3/UL (140-415)
[2016-04-21] MEDS ORDERED: EPOETIN 10000 UNITS/1 ML INJ (ESRD) SC ONE (08:30)
[2016-04-21 08:44] LABS: POTASSIUM 5.1 mmol/L (3.5-5.1)
[2016-04-21 08:46] LABS: CREATININE 3.65 mg/dl (0.44-1.00)
--- NOTE | 2016-04-21 08:47 | PN ---
DATE: 04/21/2016 SUBJECTIVE: Overnight, the patient has remained stable. The patient is hypertensive this morning with systolic pressures in the 150s. No other acute events noted. No hemoptysis, hematemesis, or hematochezia. The patient's pain is adequately controlled. OBJECTIVE: VITAL SIGNS: Blood pressure is 150/72, respiration 18, pulse 82, temperature 98.3. I'S AND O'S: The patient had 2.4 L in, 3.2 liters out. HEENT: Head is normocephalic. NECK: Supple. HEART: Regular rate. LUNGS: Show diminished breath sounds at the base. ABDOMEN: Soft, nontender to palpation. No rebound or guarding. EXTREMITIES: Negative for clubbing, cyanosis, no edema. DERMATOLOGIC: No rashes. MUSCULOSKELETAL: Positive tenderness to palpation of the right hip. NEUROLOGIC: No change in exam. MEDICATIONS: The patient's medications have been reviewed. LABORATORY DATA: White count is 9.3, hemoglobin 9.3, hematocrit 29.4, platelet count is 75. The patient's BMP from yesterday, 04/20/2016, showed sodium of 158 , potassium 5.4, chloride 122, BUN 44, creatinine 3.50. ASSESSMENT AND PLAN: 1. Status post mechanical fall with right intertrochanteric fracture. The patient is currently stable, was evaluated by Dr. Brennan, and is pending surgery once medically cleared. 2. Nonoliguric acute kidney injury on top of CKD, stage IV/V, with a baseline creatinine around 3.2 mg/dL. Etiology of acute kidney injury is secondary to volume depletion with possible tubular injury. The patient's renal function has slowly been improving with IV hydration. We will continue. If the patient' s renal function, however, should not improve, and if the patient should remain hyperkalemic, would then consider starting renal replacement therapy prior to surgery. 3. Hyperkalemia secondary to acute kidney injury. The patient's potassium levels have been improving. We will continue IV hydration and monitor. If there is no significant improvement with medical management, we will consider starting renal replacement therapy. 4. Hypernatremia. No significant improvement. Concerned for possible Diabetes Insipidus.The patient has a free water deficit of approximately 4 liters. Will re-order urine osmolarity. The patient has extensive psychiatric history possible previous lithium exposure, possible nephrogenic DI. Continue to monitor sodium levels, adjust fluid rate as needed. 5. Acute encephalopathy on top of dementia. Etiology is multifactorial secondary to acute kidney injury, uremia, and hypernatremia. Continue current medical management and monitor. 6. Hypertension. Etiology is multifactorial in part due to pain. Continue current blood pressure regimen. We will consider starting beta eulogio, continue pain control. 7. Anemia. Etiology is secondary to chronic kidney disease and possibly due to intertrochanteric bleed due to recent fracture. The patient is status post blood transfusion. We will continue to monitor H and H levels. We will give Epogen. 8. Mineral bone disorder. Continue to monitor calcium and phosphorus levels. 9. Previous history of diverticulosis and GI bleed. Continue to monitor. 10. Gastrointestinal and deep venous thrombosis prophylaxis. Continue PPIs and sequential leg squeezers. Dictated By: BASIL HARDWICK/NTS Conf#: [id number] DID#: [id number] MTDD
[2016-04-21 08:48] LABS: CALCIUM 9.9 mg/dl (8.4-10.2); MAGNESIUM 2.3 mg/dl (1.7-2.5); PHOSPHORUS 3.7 mg/dl (2.5-4.9)
[2016-04-21] MEDS: AMLODIPINE 10 MG TAB PO SCH (10:03)
--- NOTE | 2016-04-21 13:12 | PN ---
DATE: 04/21/2016 CARDIOLOGY FOLLOWUP SUBJECTIVE: The patient remains in sinus rhythm. No chest pain or pressure. Still has hip pain wi th any movement. The patient has remained overall stable. MEDICATIONS: Reviewed. PHYSICAL EXAMINATION: VITAL SIGNS: Temperature 98.5, heart rate of 88, blood pressure most recent one is high, it is 170/ 84, respiratory rate of 20. HEENT: Normocephalic, atraumatic. Pupils are equal. CARDIOVASCULAR: Regular rate and rhythm. Systolic murmur. PULMONARY: With no wheezes heard. GASTROINTESTINAL: Soft, nontender. EXTREMITIES: With trivial edema. NEUROLOGIC: Awake, responsive. LABORATORY: WBC of 9.3, hemoglobin 9.3, platelets of 75. Sodium 157, potassium 5.1, BUN of 44, cre atinine of 3.65. ASSESSMENT AND PLAN: 1. Cardiovascular preoperative evaluation. 2. Status post fall and hip fracture. 3. Renal failure, acute on chronic. 4. Hypertension. 5. Hyperkalemia. 6. Hypernatremia. 7. Severe anemia, status post transfusions. RECOMMENDATIONS: IV fluid management as per renal team. We will continue with the current cardiac care. I will add a low dose of carvedilol to her regimen as well to control the blood pressure bett er. Continue the rest of her cardiac care. Dictated By: DINORA CARLSON/BERTIN Conf#: [id number] DID#: [id number] CC: BASIL MILLER DO;*EndCC*
--- NOTE | 2016-04-21 13:42 | RADRPT ---
Vent Rate: 92 bpm RR Interval: 0 msec SD Interval: 146 msec QRS Duration: 84 msec QT Interval: 358 msec QTC Interval: 442 msec P-R-T Allen: 65 - 53 - 60 degrees Normal sinus rhythm with sinus arrhythmia Normal ECG Electronically Signed By: Maciel Minor [id number]
[2016-04-21 14:59] LABS: POTASSIUM 4.9 mmol/L (3.5-5.1)
[2016-04-21 15:01] LABS: CREATININE 3.71 mg/dl (0.44-1.00)
[2016-04-21 15:02] LABS: CALCIUM 9.9 mg/dl (8.4-10.2)
[2016-04-22] VITALS (28 sets, daily range): BP systolic 114–156; BP diastolic 68–85; PULSE 58–85; RESP 14–33
[2016-04-22] MEDS ORDERED: SOD CHLORIDE 0.9% 250 ML IV* ONE (00:32)
[2016-04-22] MEDS: morphine 2 MG INJ IV PRN (02:35)
[2016-04-22] MEDS: PANTOPRAZOLE 40 MG INJ IV SCH (05:54)
[2016-04-22] MEDS: DEXTROSE 5% 1,000 ML IV SCH ×2 (05:54→10:40)
[2016-04-22 06:53] LABS: ADD SCAN DIFF NO
[2016-04-22 06:55] LABS: ABNORMAL IP MESSAGE 1; BASOPHIL # 0.1 10^3/ul (0.0-0.1); BASOPHILS % 0.6 % (0.0-2.0); EOSINOPHILS # 0.1 10^3/ul (0.0-0.5); HEMATOCRIT 35.9 % (37.0-47.0); HEMOGLOBIN 10.9 g/dl (12.0-16.0); LYMPHOCYTES # 1.4 10^3/ul (0.8-2.9); LYMPHOCYTES % 13.3 % (15.0-51.0); MEAN CORPUSCULAR HEMOGLOBIN 30.9 pg (29.0-33.0); MEAN CORPUSCULAR HGB CONC 30.4 g/dl (32.0-37.0); MEAN CORPUSCULAR VOLUME 101.7 fl (82.0-101.0); MEAN PLATELET VOLUME 13.8 fl (7.4-10.4); MONOCYTE # 1.2 10^3/ul (0.3-0.9); MONOCYTES % 11.7 % (0.0-11.0); NEUTROPHIL # 7.2 10^3/ul (1.6-7.5); NEUTROPHILS % 70.3 % (39.0-77.0); PLATELET COUNT 77 10^3/UL (140-415); RED BLOOD COUNT 3.53 10^6/ul (4.20-5.40); RED CELL DISTRIBUTION WIDTH 15.8 % (11.5-14.5); WHITE BLOOD COUNT 10.2 10^3/ul (4.8-10.8)
[2016-04-22] MEDS ORDERED: NEOSTIGMINE 3 MG/3 ML SYRINGE ONE (07:00)
[2016-04-22] MEDS ORDERED: GLYCOPYRROLATE 1 MG INJ ONE (07:00)
[2016-04-22] MEDS ORDERED: CEFAZOLIN 1 GM INJ ONE (07:00)
[2016-04-22 07:17] LABS: CREATININE 3.81 mg/dl (0.44-1.00)
[2016-04-22 07:18] LABS: CALCIUM 9.8 mg/dl (8.4-10.2); MAGNESIUM 2.2 mg/dl (1.7-2.5); PHOSPHORUS 4.5 mg/dl (2.5-4.9)
[2016-04-22 07:33] LABS: POTASSIUM 4.6 mmol/L (3.5-5.1)
--- NOTE | 2016-04-22 09:00 | CONS ---
Date/Time of Note Date/Time of Note DATE: 04/22/16 TIME: 08:58 Consult Date/Type/Reason Admit Date/Time Apr 19, 2016 at 13:56 Initial Consult Date Type of Consultation: im/nephro Subjective pt. comfortable this am. she is still npo. no distress d/w rn at bedside. good uop in [place] Objective Vital Signs Date Time Temp Pulse Resp B/P Pulse Ox O2 Delivery O2 Flow Rate FiO2 04/22/16 08:06 82 04/22/16 07:20 98.5 18 137/73 94 04/21/16 15:25 2.0 04/19/16 22:47 Nasal Cannula Intake and Output 04/21/16 04/21/16 04/22/16 15:00 23:00 07:00 Intake Total 480 ml 1475 ml Output Total 1400 ml 1500 ml Balance -920 ml -25 ml HEENT: Head is normocephalic. NECK: Supple. HEART: Regular rate. LUNGS: Show diminished breath sounds at the base. ABDOMEN: Soft, nontender to palpation. No rebound or guarding. EXTREMITIES: Negative for clubbing, cyanosis, no edema. DERMATOLOGIC: No rashes. MUSCULOSKELETAL: Positive tenderness to palpation of the right hip. NEUROLOGIC: No change in exam. Results/Medications Result Diagram: 04/22/16 0555 04/22/16 0555 Results 24 hrs Laboratory Tests Test 04/21/16 14:25 04/21/16 16:18 04/22/16 05:55 Anion Gap 18 H 16 Blood Urea Nitrogen 41 H 42 H Calcium Level 9.9 9.8 Carbon Dioxide Level 22 24 Chloride Level 120 H 125 H Creatinine 3.71 H 3.81 H Glucose Level 188 100 # Potassium Level 4.9 4.6 Sodium Level 155 H 160 H Urine Osmolality 192 L Basophils # 0.1 Basophils % 0.6 Eosinophils # 0.1 Eosinophils % 1.0 Hematocrit 35.9 #L Hemoglobin 10.9 L Lymphocytes # 1.4 Lymphocytes % 13.3 L Magnesium Level 2.2 Mean Corpuscular Hemoglobin 30.9 Mean Corpuscular Hemoglobin Concent 30.4 L Mean Corpuscular Volume 101.7 H Mean Platelet Volume 13.8 H Monocytes # 1.2 H Monocytes % 11.7 H Neutrophils # 7.2 Neutrophils % 70.3 Nucleated Red Blood Cells # 0.0 Nucleated Red Blood Cells % 0.0 Phosphorus Level 4.5 Platelet Count 77 L Red Blood Count 3.53 #L Red Cell Distribution Width 15.8 H White Blood Count 10.2 Medications Current Medications Pantoprazole (Protonix Iv) 40 mg DAILY@06 IV Last administered on 04/22/16 05: 54; Admin Dose 40 MG; Start 04/20/16 at 06:00 Acetaminophen (Tylenol Tab) 650 mg Q6H PRN PO pain; Start 04/19/16 at 15:30 Acetaminophen/ Hydrocodone Bitart ([place] (5/325)) 1 tab Q6H PRN PO pain Last administered on 04/20/16 20:59; Admin Dose 1 TAB; Start 04/19/16 at 15:30 Morphine Sulfate 1 mg 1 mg Q6H PRN IV for severe pain (7-10) Last administered on 04/22/16 02:35; Admin Dose 1 MG; Start 04/19/16 at 21:30 Dextrose (D5W) 1,000 ml @ 125 mls/hr Q8H IV Last administered on 04/22/16 05: 54; Admin Dose 125 MLS/HR; Start 04/20/16 at 08:00 Amlodipine Besylate (Norvasc) 10 mg DAILY PO Last administered on 04/21/16 10: 03; Admin Dose 10 MG; Start 04/20/16 at 09:00 Carvedilol (Coreg) 3.125 mg BID PO Last administered on 04/21/16 20:17; Admin Dose 3.125 MG; Start 04/21/16 at 13:00 Assessment/Plan Chief Complaint/Hosp Course 1. Status post mechanical fall with right intertrochanteric fracture. - The patient is currently stable,medically optimized for surgery with Dr. Brennan. 2. Nonoliguric acute kidney injury on top of CKD, stage IV/V, with a baseline creatinine around 3.2 mg/dL. Etiology of acute kidney injury is secondary to volume depletion with possible tubular injury. -The patient's renal function has slowly been improving with IV hydration. volume status ok, good uop. 3. Hyperkalemia secondary to acute kidney injury. The patient's potassium levels have been improving. We will continue IV hydration and monitor. If there is no significant improvement with medical management, we will consider starting renal replacement therapy. 4. Hypernatremia. The patient has a free water deficit of approximately 4 liters. Sodium levels have slowly been improving. Continue D5W at current rate. We will adjust as needed. 5. Acute encephalopathy on top of dementia. Etiology is multifactorial secondary to acute kidney injury, uremia, and hypernatremia. Continue current medical management and monitor. 6. Hypertension. Etiology is multifactorial in part due to pain. Continue current blood pressure regimen. We will consider starting beta eulogio, continue pain control. 7. Anemia. Etiology is secondary to chronic kidney disease and possibly due to intertrochanteric bleed due to recent fracture. The patient is status post blood transfusion. We will continue to monitor H and H levels. We will give Epogen. 8. Mineral bone disorder. Continue to monitor calcium and phosphorus levels. 9. Previous history of diverticulosis and GI bleed. Continue to monitor. 10. Gastrointestinal and deep venous thrombosis prophylaxis. Continue PPIs and sequential leg squeezers. Problems: EVI CASANOVA MD Apr 22, 2016 09:00
[2016-04-22] MEDS: AMLODIPINE 10 MG TAB PO SCH (09:02)
--- NOTE | 2016-04-22 14:12 | HPN ---
Date/Time of Note Date/Time of Note DATE: 04/22/16 TIME: 14:12 Interval H&P Admission Note Pt. seen H&P reviewed: No system changes JAGUAR BAEZ MD Apr 22, 2016 14:12
[2016-04-22] MEDS ORDERED: ROCURONIUM 50 MG INJ ONE (14:32)
[2016-04-22] MEDS ORDERED: LIDOCAINE 2% (SDV) 5 ML INJ ONE (14:32)
[2016-04-22] MEDS ORDERED: PROPOFOL 20 ML ONE (14:32)
[2016-04-22] MEDS ORDERED: ONDANSETRON 4 MG INJ ONE (14:35)
[2016-04-22] MEDS ORDERED: FENTAnyl 50 MCG/ML VIAL ONE ×2 (14:35→15:22)
[2016-04-22] MEDS ORDERED: MIDAZOLAM 1 MG/ML 2 ML INJ ONE (14:35)
[2016-04-22] MEDS ORDERED: DEXAMETHASONE 4 MG/ML 1 ML INJ ONE (14:35)
[2016-04-22] MEDS ORDERED: POLYMYXIN/BACITRACIN 1L IRRIG IRR ONE (15:23)
[2016-04-22] MEDS: SOD CHLORIDE 0.9% 1,000 ML IV SCH (16:16)
--- NOTE | 2016-04-22 16:22 | RADRPT ---
PROCEDURE: Intraoperative imaging of the right hip with fluoroscopy. CLINICAL INDICATION: Right hip pain. Intraoperative. TECHNIQUE: 6 images of the right hip were obtained in the operating room with an image intensifier . No radiologist was in attendance. 111.1 seconds of fluoroscopy time was used. COMPARISON: 04/19/2016. FINDINGS: Images demonstrate open reduction and internal fixation of the right hip with a suresh in the shaft of the femur and a screw in the neck of the femur. Alignment of the intertrochanteric fracture is sati sfactory. IMPRESSION: 1. Satisfactory intraoperative imaging of the right hip. RPTAT: QQ .Newton Romero MD, MD Date Time Electronically viewed and signed by .Newton Romero MD, MD on 04/22/2016 16:22 .R/
[2016-04-22] MEDS ORDERED: morphine 2 MG INJ IV PRN (16:30)
[2016-04-22] MEDS ORDERED: NACL 0.9% 3 ML SYG IV SCH (16:30)
[2016-04-22] MEDS ORDERED: CEFAZOLIN 1 GM/50 ML (PMX) 50 ML IVPB SCH ×2 (16:30→23:00)
[2016-04-22 17:32] LABS: ADD SCAN DIFF NO
[2016-04-22 17:43] LABS: ABNORMAL IP MESSAGE 1; BASOPHIL # 0.1 10^3/ul (0.0-0.1); BASOPHILS % 0.5 % (0.0-2.0); EOSINOPHILS # 0.1 10^3/ul (0.0-0.5); EOSINOPHILS % 0.5 % (0.0-7.0); HEMATOCRIT 35.1 % (37.0-47.0); HEMOGLOBIN 10.6 g/dl (12.0-16.0); LYMPHOCYTES # 0.7 10^3/ul (0.8-2.9); MEAN CORPUSCULAR HEMOGLOBIN 30.9 pg (29.0-33.0); MEAN CORPUSCULAR HGB CONC 30.2 g/dl (32.0-37.0); MEAN CORPUSCULAR VOLUME 102.3 fl (82.0-101.0); MEAN PLATELET VOLUME 14.1 fl (7.4-10.4); MONOCYTE # 0.4 10^3/ul (0.3-0.9); NEUTROPHIL # 9.2 10^3/ul (1.6-7.5); NEUTROPHILS % 84.1 % (39.0-77.0); PLATELET COUNT 76 10^3/UL (140-415); RED BLOOD COUNT 3.43 10^6/ul (4.20-5.40); RED CELL DISTRIBUTION WIDTH 15.7 % (11.5-14.5); WHITE BLOOD COUNT 10.9 10^3/ul (4.8-10.8)
--- NOTE | 2016-04-22 17:46 | RADRPT ---
PROCEDURE: XR Pelvis. CLINICAL INDICATION: Pelvic pain. Postop evaluation TECHNIQUE: Single AP view of the pelvis was obtained. COMPARISON: 04/19/2016 FINDINGS: Interval placement of an intramedullary suresh in the right femur is seen with interlocking screw for a n intertrochanteric right hip fracture. The lesser trochanteric fracture component remains displace d. The remainder of the fracture fragments are in near anatomic alignment. Intramedullary suresh plac ement of the left femur is once again seen for a healed left intertrochanteric fracture. Diffuse os teopenia is seen. A Jennings catheter is seen. Skin nancy with soft tissue air is seen in the surgi luis alberto bed. IMPRESSION: Status post intramedullary suresh placement for an intertrochanteric right hip fracture which is incomp letely visualized with acute postoperative changes. Aside from the lesser trochanteric fracture com ponent, the remainder of the fracture fragments appear near anatomic. RPTAT: HPNM Physician Christin Date Time Electronically viewed and signed by Physician Christin on 04/22/2016 17:46 /
--- NOTE | 2016-04-22 17:47 | OPR ---
DATE OF OPERATION: 04/22/2016 PREOPERATIVE DIAGNOSIS: Intertrochanteric fracture of the right hip. POSTOPERATIVE DIAGNOSIS: Intertrochanteric fracture of the right hip. OPERATION PERFORMED: Open reduction internal fixation of the intertrochanteric fracture of the righ t hip. SURGEON: Benita Brennan MD ANESTHESIA: General anesthesia. PROCEDURE AND FINDINGS: Under anesthesia, the patient was placed on top of the fracture table. Uti lizing the fracture table under fluoroscopic monitoring, manipulative reduction was carried out unti l an acceptable alignment could be achieved. Usual prep and drape was done exposing the right hip and right thigh. The intertrochanteric area of the right hip was approached through a small lateral longitudinal inci leona. Through the tip of the greater trochanter, intramedullary canal was entered using guide drill . After confirming satisfactory position of the guide drill, opening was enlarged with the cannulat ed drill and then a reamer guide was introduced into the intramedullary canal. At this point, after proper adjustment, measurement was made and it was my estimation that the 38 cm long, 11.5 mm thick intramedullary suresh with a 125-degree angle would be the proper choice. After reaming along the giovanni belia guide, a selected intramedullary device in the size of 38 cm x 11.5 mm with a 125-degree angle w as pounded in. Again, after proper rotatory adjustment, guide pin for the lag screw was properly po sitioned and the measurement revealed that the proper size of the lag screw would be 90 mm. After r eaming along the guide pin, selected lag screw in the size of 90 mm was screwed in. After the locki ng the lag screw properly, all the insertion guides were removed. After irrigation and hemostasis, closure of the incisions were carried out using 0 Dexon for muscle and fascia and 2-0 Dexon for subcutaneous tissues. Final skin closure was carried out with skin sta ples. The patient tolerated the entire procedure very well and was sent to the recovery room in goo d condition. Dictated By: BENITA RODRÍGUEZ/BERTIN Conf#: [id number] DID#: [id number]
--- NOTE | 2016-04-22 18:26 | RADRPT ---
PROCEDURE: XR Right Hip CLINICAL INDICATION: Postop TECHNIQUE: An AP view of the right hip and an AP view of the more distal femur were submitted. COMPARISON: Intraoperative study done earlier on the same date FINDINGS: Osseous structures: A proximal femoral male has been placed to internally fixed the intertrochanteri c fracture fragments of of the proximal right femur which remain satisfactorily aligned except at th e lesser trochanter is avulsed and now is displaced superiorly and medially. The remaining osseous e lements appear intact although rarefied. Joint spaces: The hip joint is well maintained there is no distension of the joint capsule. Soft tissues: appear unremarkable. IMPRESSION: 1. Satisfactory positioning alignment of the major internally fixed intertrochanteric fracture frag ments of the proximal right femur with the exception at the lesser trochanter is now more displaced medially and superiorly. 2. Osteoporosis. Physician Karmen Date Time Electronically viewed and signed by Physician Karmen on 04/22/2016 18:26 /
[2016-04-22] MEDS: CEFAZOLIN 1 GM/50 ML (PMX) 50 ML IVPB SCH (21:58)
[2016-04-22] MEDS: HYDROCODONE/APAP (5/325) TAB PO PRN (23:34)
[2016-04-23] VITALS (12 sets, daily range): BP systolic 109–133; BP diastolic 63–73; PULSE 76–84; RESP 16–19
[2016-04-23] MEDS: DEXTROSE 5% 1,000 ML IV SCH ×4 (01:35→18:48)
[2016-04-23 06:07] LABS: ADD SCAN DIFF NO
[2016-04-23 06:17] LABS: ABNORMAL IP MESSAGE 1; BASOPHILS % 0.2 % (0.0-2.0); EOSINOPHILS % 0.1 % (0.0-7.0); HEMATOCRIT 31.2 % (37.0-47.0); HEMOGLOBIN 9.4 g/dl (12.0-16.0); LYMPHOCYTES % 8.5 % (15.0-51.0); MEAN CORPUSCULAR HEMOGLOBIN 30.7 pg (29.0-33.0); MEAN CORPUSCULAR HGB CONC 30.1 g/dl (32.0-37.0); MEAN PLATELET VOLUME 13.8 fl (7.4-10.4); MONOCYTE # 1.2 10^3/ul (0.3-0.9); MONOCYTES % 10.8 % (0.0-11.0); NEUTROPHILS % 78.3 % (39.0-77.0); RED BLOOD COUNT 3.06 10^6/ul (4.20-5.40); RED CELL DISTRIBUTION WIDTH 15.5 % (11.5-14.5); WHITE BLOOD COUNT 11.5 10^3/ul (4.8-10.8)
[2016-04-23 06:23] LABS: POTASSIUM 5.5 mmol/L (3.5-5.1)
[2016-04-23] MEDS: HYDROCODONE/APAP (5/325) TAB PO PRN ×2 (06:25→21:52)
[2016-04-23 06:26] LABS: CREATININE 4.02 mg/dl (0.44-1.00)
[2016-04-23 06:27] LABS: CALCIUM 9.4 mg/dl (8.4-10.2); PHOSPHORUS 4.4 mg/dl (2.5-4.9)
[2016-04-23] MEDS: PANTOPRAZOLE 40 MG INJ IV SCH (06:29)
[2016-04-23 07:06] LABS: PLATELET COUNT 70 10^3/UL (140-415)
[2016-04-23 09:50] LABS: PLATELET ESTIMATE PLT APPEAR DECREASED
[2016-04-23] MEDS: AMLODIPINE 10 MG TAB PO SCH (10:10)
[2016-04-23] MEDS: CEFAZOLIN 1 GM/50 ML (PMX) 50 ML IVPB SCH ×2 (10:10→21:52)
--- NOTE | 2016-04-23 10:11 | CONS ---
Date/Time of Note Date/Time of Note DATE: 04/23/16 TIME: 10:09 Consult Date/Type/Reason Admit Date/Time Apr 19, 2016 at 13:56 Type of Consultation: im/nephro Subjective pt. post op #1 d/w ortho pain under control no specific c/o PT ordered no overt bleeding. PE: HEENT: Head is normocephalic. NECK: Supple. HEART: Regular rate. LUNGS: Show diminished breath sounds at the base. ABDOMEN: Soft, nontender to palpation. No rebound or guarding. EXTREMITIES: Negative for clubbing, cyanosis, no edema. DERMATOLOGIC: No rashes. MUSCULOSKELETAL: Positive tenderness to palpation of the right hip. NEUROLOGIC: No change in exam. Objective Vital Signs Date Time Temp Pulse Resp B/P Pulse Ox O2 Delivery O2 Flow Rate FiO2 04/23/16 08:14 76 04/23/16 07:36 98.5 19 111/63 98 04/22/16 20:05 Nasal Cannula 2.0 Intake and Output 04/22/16 04/22/16 04/23/16 15:00 23:00 07:00 Intake Total 1825 ml 400 ml Output Total 1225 ml 550 ml Balance 600 ml -150 ml Results/Medications Result Diagram: 04/23/16 0548 04/23/16 0553 Results 24 hrs Laboratory Tests Test 04/22/16 17:20 04/23/16 05:48 04/23/16 05:53 Basophils # 0.1 0.0 Basophils % 0.5 0.2 Eosinophils # 0.1 0.0 Eosinophils % 0.5 0.1 Hematocrit 35.1 L 31.2 L Hemoglobin 10.6 L 9.4 L Lymphocytes # 0.7 L 1.0 Lymphocytes % 6.0 L 8.5 L Mean Corpuscular Hemoglobin 30.9 30.7 Mean Corpuscular Hemoglobin Concent 30.2 L 30.1 L Mean Corpuscular Volume 102.3 H 102.0 H Mean Platelet Volume 14.1 H 13.8 H Monocytes # 0.4 1.2 H Monocytes % 4.0 10.8 Neutrophils # 9.2 H 9.0 H Neutrophils % 84.1 H 78.3 H Nucleated Red Blood Cells # 0.0 0.0 Nucleated Red Blood Cells % 0.0 0.0 Platelet Count 76 L 70 L Red Blood Count 3.43 L 3.06 L Red Cell Distribution Width 15.7 H 15.5 H White Blood Count 10.9 H 11.5 H Large Platelets FEW Platelet Estimate PLT APPEAR DECREASED Anion Gap 17 H Blood Urea Nitrogen 47 H Calcium Level 9.4 Carbon Dioxide Level 20 L Chloride Level 119 H Creatinine 4.02 H Glucose Level 127 Magnesium Level 2.0 Phosphorus Level 4.4 Potassium Level 5.5 H Sodium Level 150 H Medications Current Medications Pantoprazole (Protonix Iv) 40 mg DAILY@06 IV Last administered on 04/23/16 06: 29; Admin Dose 40 MG; Start 04/20/16 at 06:00 Acetaminophen (Tylenol Tab) 650 mg Q6H PRN PO pain; Start 04/19/16 at 15:30 Acetaminophen/ Hydrocodone Bitart ([place] (5/325)) 1 tab Q6H PRN PO pain Last administered on 04/20/16 20:59; Admin Dose 1 TAB; Start 04/19/16 at 15:30 Morphine Sulfate 1 mg 1 mg Q6H PRN IV for severe pain (7-10) Last administered on 04/22/16 02:35; Admin Dose 1 MG; Start 04/19/16 at 21:30 Dextrose (D5W) 1,000 ml @ 125 mls/hr Q8H IV Last administered on 04/23/16 01: 35; Admin Dose 125 MLS/HR; Start 04/20/16 at 08:00 Amlodipine Besylate (Norvasc) 10 mg DAILY PO Last administered on 04/22/16 09: 02; Admin Dose 10 MG; Start 04/20/16 at 09:00 Carvedilol 3.125 mg 3.125 mg BID PO Last administered on 04/22/16 21:59; Admin Dose 3.125 MG; Start 04/21/16 at 13:00 Sodium Chloride (NS) 1,000 ml @ 100 mls/hr Q10H IV ; Start 04/22/16 at 16:16 Enoxaparin Sodium (Lovenox) 30 mg DAILY SC ; Start 04/23/16 at 09:00 Morphine Sulfate (morphine) 2 mg Q2H PRN IV PAIN; Start 04/22/16 at 16:30 Acetaminophen/ Hydrocodone Bitart 1 tab 1 tab Q3H PRN PO PAIN Last administered on 04/23/16 06:25; Admin Dose 1 TAB; Start 04/22/16 at 16:30 Cefazolin Sodium (Ancef 1 Gm/50 ml (Pmx)) 50 ml @ 100 mls/hr Q12 IVPB Last administered on 04/22/16 21:58; Admin Dose 100 MLS/HR; Start 04/22/16 at 21:00; Stop 04/23/16 at 21:29 Assessment/Plan Chief Complaint/Hosp Course 1. Status post mechanical fall with right intertrochanteric fracture. -post op -pain control, pt/ot. 2. Nonoliguric acute kidney injury on top of CKD, stage IV/V, with a baseline creatinine around 3.2 mg/dL. Etiology of acute kidney injury is secondary to volume depletion with possible tubular injury. -The patient's renal function has slowly been improving with IV hydration. volume status ok, good uop. 3. Hyperkalemia secondary to acute kidney injury. The patient's potassium levels have been improving. We will continue IV hydration and monitor. If there is no significant improvement with medical management, we will consider starting renal replacement therapy. 4. Hypernatremia. The patient has a free water deficit of approximately 4 liters. Sodium levels have slowly been improving. Continue D5W at current rate. We will adjust as needed. 5. Acute encephalopathy on top of dementia. Etiology is multifactorial secondary to acute kidney injury, uremia, and hypernatremia. Continue current medical management and monitor. 6. Hypertension. Etiology is multifactorial in part due to pain. Continue current blood pressure regimen. We will consider starting beta eulogio, continue pain control. 7. Anemia. Etiology is secondary to chronic kidney disease and possibly due to intertrochanteric bleed due to recent fracture. The patient is status post blood transfusion. We will continue to monitor H and H levels. We will give Epogen. 8. Mineral bone disorder. Continue to monitor calcium and phosphorus levels. 9. Previous history of diverticulosis and GI bleed. Continue to monitor. 10. Gastrointestinal and deep venous thrombosis prophylaxis. Continue PPIs and sequential leg squeezers. Problems: EVI CASANOVA MD Apr 23, 2016 10:10
[2016-04-23] MEDS: ENOXAPARIN 30 MG/0.3 ML SYG SC SCH (10:24)
[2016-04-23] MEDS ORDERED: HYDROCHLOROTHIAZIDE 25 MG TAB PO ONE (10:30)
--- NOTE | 2016-04-23 18:38 | PN ---
DATE: First postop day. Low grade temperature with 99 degrees Fahrenheit. Postop H and H is 9.4/31.2. P ostoperative x-rays show excellent alignment of the fracture. No signs of neurovascular compromise. Expect slow progress with PT because of her mental condition. Dictated By: BENITA RODRÍGUEZ/BERTIN Conf#: [id number] DID#: [id number]
[2016-04-23] MEDS: SOD CHLORIDE 0.9% 1,000 ML IV SCH (22:16)
[2016-04-24] VITALS (12 sets, daily range): BP systolic 107–125; BP diastolic 61–72; PULSE 76–84; RESP 16–20
[2016-04-24] MEDS: DEXTROSE 5% 1,000 ML IV SCH (05:21)
[2016-04-24] MEDS: PANTOPRAZOLE (EC) 40 MG TAB PO SCH (05:25)
[2016-04-24 06:16] LABS: ADD SCAN DIFF NO
[2016-04-24 06:25] LABS: ABNORMAL IP MESSAGE 1; BASOPHILS % 0.3 % (0.0-2.0); EOSINOPHILS # 0.1 10^3/ul (0.0-0.5); EOSINOPHILS % 1.6 % (0.0-7.0); HEMATOCRIT 28.1 % (37.0-47.0); HEMOGLOBIN 8.8 g/dl (12.0-16.0); LYMPHOCYTES # 1.4 10^3/ul (0.8-2.9); LYMPHOCYTES % 15.6 % (15.0-51.0); MEAN CORPUSCULAR HEMOGLOBIN 31.3 pg (29.0-33.0); MEAN CORPUSCULAR HGB CONC 31.3 g/dl (32.0-37.0); MEAN PLATELET VOLUME 14.1 fl (7.4-10.4); MONOCYTES % 11.3 % (0.0-11.0); NEUTROPHIL # 5.8 10^3/ul (1.6-7.5); NEUTROPHILS % 66.5 % (39.0-77.0); PLATELET COUNT 79 10^3/UL (140-415); RED BLOOD COUNT 2.81 10^6/ul (4.20-5.40); RED CELL DISTRIBUTION WIDTH 14.8 % (11.5-14.5); WHITE BLOOD COUNT 8.8 10^3/ul (4.8-10.8)
[2016-04-24 06:33] LABS: POTASSIUM 4.7 mmol/L (3.5-5.1)
[2016-04-24 06:35] LABS: CREATININE 4.48 mg/dl (0.44-1.00)
[2016-04-24 06:36] LABS: PHOSPHORUS 4.1 mg/dl (2.5-4.9)
--- NOTE | 2016-04-24 08:25 | PN ---
DATE: 04/24/2016 SUBJECTIVE: The patient had successful ORIF of her right hip. Patient is postop day number 2. No other acute events noted overnight. No hemoptysis, hematemesis, or hematochezia. OBJECTIVE: VITAL SIGNS: Blood pressure 121/72, respirations 20, pulse 77, temperature 98.4. HEENT: Head is normocephalic. NECK: Supple. HEART: Regular rate. LUNGS: Show diminished breath sounds at base. ABDOMEN: Soft, nontender to palpation. No rebound or guarding. EXTREMITIES: Negative for clubbing, cyanosis. No edema. DERMATOLOGIC: No rashes. MUSCULOSKELETAL: No joint effusions. NEUROLOGIC: No change in exam. MEDICATIONS: The patient's medications have been reviewed. LABORATORY DATA: Shows sodium 144, potassium 4.7, chloride 111, BUN creatinine 4.48. White c ount 8.8, hemoglobin 8.8, hematocrit 28.1, platelet count is 79,000. ASSESSMENT AND PLAN: 1. Right intertrochanteric fracture, status post open reduction/internal fixation. The patient is postop day number 2. We will continue to monitor, continue pain control. Continue deep venous thro mbosis prophylaxis. Continue physical therapy. 2. Nonoliguric acute kidney injury on top of chronic kidney disease stage IV/V. Etiology of acute kidney injury is secondary to hemodynamics. Questionable tubular injury. Renal function initially improved with IV hydration, however, has further declined in the last 48 hours after surgery. We wi ll start the patient on normal saline. We will monitor I's and O's closely. We will continue suppo rtive care, renally dose all meds. We will consider repeating a urinalysis. There is no immediate need for renal replacement therapy at this time. 3. Hyperkalemia secondary to acute kidney injury, improved. We will continue a low-potassium diet. Continue supportive care, renally dose all medications. 4. Hyponatremia. 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 The patient's urine osmol arity levels were inappropriately low. At this point, continue to encourage free water intake. Con tinue hypertonic fluid. The patient's sodium levels have been improving. We will monitor closely. 5. Acute encephalopathy on top of dementia. Etiology is likely secondary to acute kidney injury an d uremia. We will continue to monitor. 7. Hypertension, improved. Continue current blood pressure regimen. 8. Anemia. Continue to monitor hemoglobin and hematocrit levels. The patient is status post blood transfusion. 9. Mineral bone disorder. Continue to monitor calcium and phosphorus levels. 10. Gastrointestinal and deep venous thrombosis prophylaxis. Continue proton pump inhibitor and Lo venox. Dictated By: BASIL HARDWICK/BERTIN Conf#: [id number] DID#: [id number]
[2016-04-24] MEDS: SOD CHLORIDE 0.45% 1,000 ML IV SCH (08:34)
[2016-04-24] MEDS: AMLODIPINE 10 MG TAB PO SCH (08:35)
[2016-04-24] MEDS: ENOXAPARIN 30 MG/0.3 ML SYG SC SCH (08:42)
[2016-04-25] VITALS (11 sets, daily range): BP systolic 109–124; BP diastolic 60–69; PULSE 71–82; RESP 18–20
--- NOTE | 2016-04-25 06:29 | PN ---
DATE: 04/24/2016 SUBJECTIVE: Cardiology followup. No new cardiac event. He has mild pain. No chest pain, no palpi tation. He was reviewed and discussed with the staff. Patient is in sinus rhythm. MEDICATIONS: Reviewed as per medical reconciliation. I personally reviewed. PHYSICAL EXAMINATION: VITAL SIGNS: Temperature 98.4, heart rate of 79, blood pressure 116/67, respiration rate of 20, sat urating 98%. HEENT: Normocephalic, atraumatic. Pupils are equal. CARDIOVASCULAR: Regular rate and rhythm, systolic murmur. PULMONARY: With no wheezes. GASTROINTESTINAL: Soft, nontender. EXTREMITIES: Positive edema. NEUROLOGIC: Awake, responds appropriately. PSYCHIATRIC: Appears to be calm. LABORATORY: WBC of 8.8, hemoglobin 8.8, platelets 79. Sodium 144, potassium 4.7, BUN of 51, creati nine of 4.08, glucose 116. ASSESSMENT AND PLAN: 1. Hip fracture, status post surgery. 2. Renal failure, acute on chronic. Follow up with renal. 3. Hypertension, under control. 4. Hyperkalemia and hypernatremia. 5. Anemia, status post transfusion. RECOMMENDATIONS: Will continue with the current cardiac care. Deep venous thrombosis prophylaxis t o be continued. Beta eulogio as tolerated will be continued. Dictated By: DINORA CARLSON/BERTIN Conf#: [id number] DID#: [id number]
[2016-04-25] MEDS: PANTOPRAZOLE (EC) 40 MG TAB PO SCH (06:58)
[2016-04-25] MEDS: SOD CHLORIDE 0.45% 1,000 ML IV SCH (07:00)
[2016-04-25] MEDS: HYDROCODONE/APAP (5/325) TAB PO PRN (07:52)
[2016-04-25] MEDS: AMLODIPINE 10 MG TAB PO SCH (08:05)
[2016-04-25] MEDS: ENOXAPARIN 30 MG/0.3 ML SYG SC SCH (08:06)
--- NOTE | 2016-04-25 08:27 | PN ---
DATE: 04/25/2016 SUBJECTIVE: The patient is stable, no acute events overnight. The patient is tolerating p.o., is w orking well with physical therapy. Pain is adequately controlled. No other events noted. OBJECTIVE: VITAL SIGNS: Blood pressure 124/65, respirations 18, pulse 86, temperature 98.8. I's AND O'S: The patient had 1.3 liters in, 2.9 L out. HEENT: Head is normocephalic. NECK: Supple. HEART: Regular rate. LUNGS: Show diminished breath sounds at base. ABDOMEN: Soft, nontender to palpation. No rebound or guarding. EXTREMITIES: Negative for clubbing, cyanosis. No edema. DERMATOLOGIC: No rashes. MUSCULOSKELETAL: The patient has dressings clean, dry, intact. NEUROLOGIC: No focal deficits. MEDICATIONS: Have been reviewed. LABORATORY DATA: Currently pending. ASSESSMENT AND PLAN: 1. Right intertrochanteric fracture status post ORIF. The patient is postop day number 3, currentl y stable. Continue pain control. Continue deep venous thrombosis prophylaxis. Continue physical t herapy. 2. Nonoliguric acute kidney injury on top of chronic kidney disease stage IV/V. Etiology of acute kidney injury is secondary to hemodynamics, possible tubular injury. Renal function initially impro rios; however, declined in the previous 48 hours. The patient was placed back on IV fluids. We will follow up renal panel today. Consider repeat urinalysis. At this point, no immediate need for hesham al replacement therapy although we will monitor closely. 3. Hyperkalemia secondary to acute kidney injury, improved. Continue low-potassium diet and monito r. 4. Hypernatremia. 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 The patient's urine osmo larities were inappropriately low for a previous level of hypernatremia. At this point, continue to encourage free water intake. Continue hypertonic fluids and monitor sodium levels closely and will defer DDAVP at this time. 5. Acute encephalopathy and dementia. Etiology is toxic metabolic, electrolyte abnormality. Menta l status appears to be improving. Continue to monitor. 6. History of psychosis. Continue to monitor. 7. Hypertension. Blood pressure controlled. Current blood pressure regimen. 8. Anemia. Continue to monitor hemoglobin and hematocrit levels. The patient is status post trans fusion. We will give Epogen as needed. 9. Mineral bone disorder. Continue to monitor calcium and phosphorus levels. 10. Gastrointestinal and deep vein thrombosis prophylaxis. Continue proton pump inhibitor and Love nox. Dictated By: BASIL HARDWICK/BERTIN Conf#: [id number] DID#: [id number]
[2016-04-25 12:55] LABS: ADD SCAN DIFF NO
[2016-04-25 12:59] LABS: ABNORMAL IP MESSAGE 1; BASOPHIL # 0.1 10^3/ul (0.0-0.1); BASOPHILS % 0.6 % (0.0-2.0); EOSINOPHILS # 0.2 10^3/ul (0.0-0.5); EOSINOPHILS % 2.3 % (0.0-7.0); HEMATOCRIT 29.7 % (37.0-47.0); LYMPHOCYTES # 1.2 10^3/ul (0.8-2.9); LYMPHOCYTES % 13.7 % (15.0-51.0); MEAN CORPUSCULAR HEMOGLOBIN 30.6 pg (29.0-33.0); MEAN CORPUSCULAR HGB CONC 30.3 g/dl (32.0-37.0); MONOCYTE # 0.9 10^3/ul (0.3-0.9); MONOCYTES % 10.3 % (0.0-11.0); NEUTROPHIL # 6.1 10^3/ul (1.6-7.5); NEUTROPHILS % 66.7 % (39.0-77.0); PLATELET COUNT 89 10^3/UL (140-415); RED BLOOD COUNT 2.94 10^6/ul (4.20-5.40); RED CELL DISTRIBUTION WIDTH 14.8 % (11.5-14.5); WHITE BLOOD COUNT 9.1 10^3/ul (4.8-10.8)
[2016-04-25 13:13] LABS: POTASSIUM 5.2 mmol/L (3.5-5.1)
[2016-04-25 13:16] LABS: CREATININE 4.19 mg/dl (0.44-1.00)
[2016-04-25 13:17] LABS: CALCIUM 9.7 mg/dl (8.4-10.2)
[2016-04-25] MEDS ORDERED: ONDANSETRON 4 MG INJ IV PRN (15:30)
[2016-04-25] MEDS: CEFTRIAXONE 1 GM/50 ML (PMX) 50 ML IVPB SCH (15:43)
[2016-04-25 16:46] LABS: ADD UMIC YES; URINE BILIRUBIN (Dip) NEGATIVE (NEGATIVE); URINE BLOOD (Dip) 1+ (NEGATIVE); URINE COLOR LT. YELLOW (YELLOW); URINE GLUCOSE (Dip) NEGATIVE (NEGATIVE); URINE KETONES (Dip) NEGATIVE (NEGATIVE); URINE LEUKOCYTE ESTERASE (Dip) TRACE (NEGATIVE); URINE NITRITE (Dip) NEGATIVE (NEGATIVE); URINE TOTAL PROTEIN (Dip) 1+ (NEGATIVE); URINE UROBILINOGEN (Dip) 0.2 E.U./dL (0.1-1.0)
--- NOTE | 2016-04-25 16:48 | PN ---
DATE: 04/25/[address] Garcia's coverage. Chart was reviewed. The patient is status post right hip frac ture who underwent right hip ORIF. In addition, she was found to have severe dehydration, acute hesham al failure, hypernatremia, and hyperkalemia. The patient is overall doing better. She is status po st blood products as well. Again, chart reviewed extensively. I appreciate also Dr. Garcia contin ued follow up in nephrology consultation. The patient seen at bedside. The patient smiling. Still has pain in the right hip area. This is limiting her progression with physical therapy. PHYSICAL EXAMINATION: VITAL SIGNS: Patient is afebrile. Temperature is 98.8, pulse 71, respirations 19, blood pressure 1 20/56, saturation was 98% on 2 liters nasal cannula. GENERAL: The patient is pale. HEENT: Normocephalic, atraumatic. CARDIOVASCULAR: S1 and S2. Positive systolic ejection murmur heard throughout. LUNGS: Decreased bilaterally. ABDOMEN: Soft, nontender. EXTREMITIES: No clubbing, cyanosis, or edema. Bilateral lower extremities leg squeezers were noted . Right hip bandage was noted. No active bleeding. Echocardiogram which was done on 04/20/2016 just showed stage I diastolic dysfunction. See report. MEDICATIONS: Include 1. Normal saline at 50 mL an hour. 2. Protonix 40 mg daily. 3. Lovenox 30 mg subq every day. 4. Morphine 2 mg IV q.2h. p.r.n. 5. Elizabeth prior to admission 5 q.3h. p.r.n. orally. 6. Coreg 3.125 b.i.d. 7. Amlodipine 10 mg daily. 8. Morphine p.r.n. 9. Tylenol p.r.n. 10. Elizabeth p.r.n. LABORATORY DATA: White count is 9.1, hemoglobin 9, hematocrit 30, platelet count is low today at 89 , neutrophil count 67%, lymphocytes 14%. Sodium 147, potassium 5.2, chloride 113, bicarbonate 19, B UN is 57, creatinine 4.19, glucose of 95. Urine osmolality was 192, low. The patient does have a m icroalbumin to creatinine ratio of 10:40, basically 1 gram as she has proteinuria, not nephrotic ran ge. On admission, she did have a positive UA, +2 leukocyte esterase, WBCs 10 to 25. Culture was not done, INR 1.09. 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 Workup otherwise was nondiagnostic, who presented with right hip fracture, renal failure, anemia and metabo lic derangement. 1. Right hip fracture status post open reduction internal fixation, tolerated surgery well. Contin ue pain control. Physical therapy as tolerated. Postop x-ray showed satisfactory position and align ment of the major internal fixed intertrochanteric fracture, with the exception of the lesser trocha nteric is now more displaced medially and superiorly. Dr. Brennan is following. 2. Acute renal failure, responding to gentle hydration. We will keep the Jennings in for now as patie nt is receiving IV fluids. We will repeat urine studies. Consider antibiotics and management for U TI with Rocephin. 3. Thrombocytopenia. Previously, it was thought maybe it is related to Depakote. In the meantime, monitor H and H. Check again stool for occult blood. If there is any evidence of bleeding we will reconsult GI. Hold blood thinners in the setting of thrombocytopenia and we will continue with leg s queezers for deep vein thrombosis prophylaxis. 4. Psychiatric disorder. Will resume patient's psych medications which include Celexa, Risperidone, Depakote. 5. Anemia. Consider Epogen as patient also has anemia of chronic disease secondary to chronic kidn ey disease. 6. The patient will be placed on Protonix for GI prophylaxis. 7. Dementia. Continue supportive care. 8. Placement in possibly [facility] facility for ongoing physical therapy. Discontinue Jennings soon, hopefully in the a.m. 9. Metabolic derangement, including hypernatremia and hyperkalemia. Continue with fluid hydration for now. No evidence of fluid overload state. 10. Hypertension. Added Amlodipine. Blood pressure is better controlled. DISPOSITION: We will follow closely. Dictated By: ROSA BA/BERTIN Conf#: [id number] DID#: [id number]
[2016-04-25 16:53] LABS: SQUAMOUS EPITHELIAL CELL,UR FEW
[2016-04-25 16:54] LABS: BACTERIA,URINE FEW
[2016-04-25] MEDS: RISPERIDONE 1 MG TAB PO SCH (21:02)
[2016-04-26] VITALS (13 sets, daily range): BP systolic 101–145; BP diastolic 58–76; PULSE 61–85; RESP 16–20
[2016-04-26] MEDS: SOD CHLORIDE 0.45% 1,000 ML IV SCH (06:12)
[2016-04-26] MEDS: PANTOPRAZOLE (EC) 40 MG TAB PO SCH (06:12)
[2016-04-26 06:54] LABS: ADD SCAN DIFF NO
--- NOTE | 2016-04-26 06:57 | PN ---
DATE: 04/25/2016 CARDIOLOGY FOLLOWUP NOTE SUBJECTIVE: The patient with no chest pain or pressure. No palpitation. Has mild hip pain but is stable overall. Medications reviewed. Rhythm strip was reviewed and discussed with the staff. The patient remains in sinus rhythm. MEDICATIONS: Reviewed as per medical reconciliation, personally reviewed. PHYSICAL EXAMINATION: VITAL SIGNS: Temperature 98.8, heart rate of 82, blood pressure 124/65, respiratory rate of 18. Sa turating 98%. HEENT: Normocephalic, atraumatic. Pupils are equal. CARDIOVASCULAR: Regular rate and rhythm. PULMONARY: With no wheezes heard. GASTROINTESTINAL: Soft, nontender. EXTREMITIES: With trivial edema. NEUROLOGIC: Awake, responds appropriately. PSYCHIATRIC: Appears to be calm and pleasant. LABORATORY: WBC of 8.8, hemoglobin 8.8, platelets of 79. Sodium 144, potassium 4.7, BUN 51, creati nine 4.48, glucose 116. ASSESSMENT AND PLAN: 1. Status post right hip fracture and surgery. 2. Renal failure, acute on chronic. 3. Electrolyte abnormality, hyperkalemia, improved. 4. natremia. 5. Dementia, chronic. 6. History of psychosis, currently appears to be stable. 7. Hypertension, currently blood pressure well controlled. 8. Anemia status post transfusion. RECOMMENDATIONS: We will continue with the current cardiac care. Renal workup is still in process. Follow up renal function. Transfusion as needed. Continue with DVT prophylaxis as per Ortho and Internal Medicine. Dictated By: DINORA CARLSON/BERTIN Conf#: [id number] DID#: [id number] CC: BASIL MILLER DO;*EndCC*
[2016-04-26 07:05] LABS: ABNORMAL IP MESSAGE 1; BASOPHIL # 0.1 10^3/ul (0.0-0.1); BASOPHILS % 0.7 % (0.0-2.0); EOSINOPHILS # 0.2 10^3/ul (0.0-0.5); EOSINOPHILS % 2.2 % (0.0-7.0); HEMATOCRIT 28.1 % (37.0-47.0); HEMOGLOBIN 8.5 g/dl (12.0-16.0); LYMPHOCYTES # 1.1 10^3/ul (0.8-2.9); LYMPHOCYTES % 16.4 % (15.0-51.0); MEAN CORPUSCULAR HEMOGLOBIN 31.1 pg (29.0-33.0); MEAN CORPUSCULAR HGB CONC 30.2 g/dl (32.0-37.0); MEAN CORPUSCULAR VOLUME 102.9 fl (82.0-101.0); MEAN PLATELET VOLUME 14.7 fl (7.4-10.4); MONOCYTE # 0.7 10^3/ul (0.3-0.9); MONOCYTES % 9.8 % (0.0-11.0); NEUTROPHIL # 4.5 10^3/ul (1.6-7.5); NEUTROPHILS % 65.3 % (39.0-77.0); PLATELET COUNT 102 10^3/UL (140-415); RED BLOOD COUNT 2.73 10^6/ul (4.20-5.40); RED CELL DISTRIBUTION WIDTH 14.8 % (11.5-14.5); WHITE BLOOD COUNT 6.8 10^3/ul (4.8-10.8)
[2016-04-26 07:14] LABS: POTASSIUM 5.7 mmol/L (3.5-5.1)
[2016-04-26 07:16] LABS: CREATININE 3.51 mg/dl (0.44-1.00)
[2016-04-26 07:17] LABS: CALCIUM 9.6 mg/dl (8.4-10.2); MAGNESIUM 2.3 mg/dl (1.7-2.5); PHOSPHORUS 4.5 mg/dl (2.5-4.9)
[2016-04-26] MEDS ORDERED: NA POLYST SULFON 15 GM/60 ML BTL PO ONE (08:00)
[2016-04-26] MEDS ORDERED: EPOETIN 10000 UNITS/1 ML INJ (ESRD) SC ONE (08:00)
[2016-04-26] MEDS: DEXTROSE 5% 1,000 ML IV SCH (08:07)
[2016-04-26] MEDS: HYDROCHLOROTHIAZIDE 12.5 MG CAP PO SCH (08:21)
[2016-04-26] MEDS: CITALOPRAM 20 MG TAB PO SCH (08:22)
[2016-04-26] MEDS: AMLODIPINE 2.5 MG TAB PO SCH (08:22)
--- NOTE | 2016-04-26 08:50 | PN ---
DATE: 04/26/2016 SUBJECTIVE: The patient is stable, remains confused, working with physical therapy. No other acute events noted. No hemoptysis, hematemesis, or hematochezia. OBJECTIVE: VITAL SIGNS: Blood pressure is 101/58, respiration 18, pulse 60, temperature 98.3. INTAKE AND OUTPUT: The patient had 2.6 liters in, 3.2 liters out. HEENT: Head is normocephalic. NECK: Supple. HEART: Regular rate. LUNGS: Show diminished breath sounds at the base. ABDOMEN: Soft, nontender to palpation. No rebound or guarding. EXTREMITIES: Negative for clubbing or cyanosis. No edema. DERMATOLOGIC: No rashes. MUSCULOSKELETAL: No joint effusions. NEUROLOGIC: No change in exam. MEDICATIONS: The patient's medications have been reviewed. LABORATORY DATA: Shows sodium 147, potassium 7.7, chloride 115, BUN 57, creatinine 3.51. White cou nt 6.8, hemoglobin 8.5, hematocrit 28.1, platelet count is 102,000. ASSESSMENT AND PLAN: 1. Nonoliguric acute kidney injury on top of chronic kidney disease stage IV/V. Etiology of acute kidney injury is secondary to hemodynamics with tubular injury. The patient's renal function has be en fluctuating over the last 24 to 48 hours. Improved over the last 48 hours. At this point, we wi ll continue current treatment plan, supportive care, and renally dose all medications. 2. Hyperkalemia. Etiology secondary to acute kidney injury and chronic kidney disease. Plan is to give the patient Kayexalate 15 grams p.o. x1. We will continue low potassium diet and monitor pota ssium levels closely. 3. Hyponatremia. 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 The patient' s sodium levels remain elevated. Plan is to continue to encourage free water intake. We will ruperto nue D5W. Once renal function is stable, would consider giving hydrochlorothiazide. 5. Acute encephalopathy and dementia. Etiology is multifactorial. Continue to monitor. 6. History of psychosis. Continue to monitor. 7. Hypertension. Continue to observe. Continue current blood pressure regimen. 8. Anemia. Continue to monitor hemoglobin and hematocrit levels. We will give Epogen as needed. 9. Mineral bone disorder. Continue to monitor calcium and phosphorus levels. 10. Right intertrochanteric fracture, status post open reduction and internal fixation. The patien t is currently stable. Continue pain control. Continue deep venous thrombosis prophylaxis. Contin ue physical therapy. 11. Gastrointestinal and deep venous thrombosis prophylaxis. Continue proton pump inhibitor and Lo venox. Dictated By: BASIL HARDWICK/BERTIN Conf#: [id number] DID#: [id number]
[2016-04-26] MEDS ORDERED: HEPARIN 5,000 UNIT/0.5 ML SYG SC SCH (09:00)
[2016-04-26] MEDS ORDERED: AMLODIPINE 5 MG TAB PO SCH ×2 (09:00)
--- NOTE | 2016-04-26 09:02 | PN ---
DATE: 04/26/2016 CARDIOLOGY FOLLOWUP PROGRESS NOTE SUBJECTIVE: No new cardiac event. No chest pain or pressure. No palpitation. The patient remains in sinus rhythm. MEDICATIONS: Reviewed. PHYSICAL EXAMINATION: VITAL SIGNS: Temperature 99, heart rate of 65, blood pressure 101/59, respiration rate 18, saturati ng 96%. HEENT: Normocephalic, atraumatic. Pupils are equal. CARDIOVASCULAR: Regular rate and rhythm. PULMONARY: With no wheezes anteriorly. GASTROINTESTINAL: Soft, nontender. EXTREMITIES: No significant lower extremity edema. NEUROLOGIC: Awake, responds appropriately. PSYCHIATRIC: Appears to be calm now. LABORATORY: WBC of 6.8, hemoglobin 8.5, platelets of 102,000. Sodium 147, potassium 5.7, BUN of 57 , creatinine 3.51, glucose of 78. ASSESSMENT AND PLAN 1. Hip fracture, status post surgery. 2. Renal failure, acute on chronic. 3. Hyperkalemia secondary to renal failure. 4. Electrolyte abnormality, hypernatremia. 5. Encephalopathy with memory impairment, currently stable. 6. History of psychiatric disorder, currently stable. 7. Hypertension, under good control now. 8. Anemia, status post transfusion. RECOMMENDATIONS: Epogen has been given by renal. Continue with the current cardiac care. Off of a ny ARB or JUANY inhibitor due to her renal failure and hyperkalemia. Blood pressure currently stable on the current regimen. I will decrease amlodipine dose to avoid hypotension. Dictated By: DINORA CARLSON/BERTIN Conf#: [id number] DID#: [id number] CC: BASIL MILLER DO; Dr. Patel;*EndCC*
[2016-04-26 15:14] LABS: CREATININE 3.43 mg/dl (0.44-1.00)
[2016-04-26 15:15] LABS: CALCIUM 8.9 mg/dl (8.4-10.2)
[2016-04-26] MEDS: CEFTRIAXONE 1 GM/50 ML (PMX) 50 ML IVPB SCH (15:19)
--- NOTE | 2016-04-26 16:52 | PN ---
DATE: 04/26/2016 SUBJECTIVE: The patient seen with no specific complaints. I appreciate nephrology consult and liz hernandez. The patient's kidney function continues to improve. This morning she was noted to have worse tamiko hyperkalemia, hypernatremia, but the patient was treated with Kayexalate, diuretics and patient is better. Case discussed with case management as patient will be accepted to the [facility] in the a.m. PHYSICAL EXAMINATION: VITAL SIGNS: Temperature is 98.5, pulse 75, respirations 20, blood pressure 126/63, saturation 92%. GENERAL: No acute distress. HEENT: Normocephalic, atraumatic. The patient is pale. Temporal wasting. CARDIOVASCULAR: S1 and S2, regular rate and rhythm. LUNGS: Decreased bilaterally. ABDOMEN: Soft, nontender. EXTREMITIES: No clubbing, cyanosis, or edema. LABORATORY DATA: Sodium 139, potassium 5.0, chloride 107, bicarbonate 20, BUN is 67, creatinine 3.4 3, and glucose of 122. White count is 6.8, hemoglobin 8.7, hematocrit 28, platelet count is now nor mal at 102, neutrophils 65%, lymphocytes 16%. Urine culture on 04/25/2016 shows culture is too zuleima g to grow , still has a Jennings. Repeat UA did show trace leukocyte esterase and hemoglobin +1, and WBCs 2 to 5. MEDICATIONS: Reviewed include the followin. Celexa 20 mg daily. 2. Hydrochlorothiazide 12.5 mg daily. 3. Norvasc 2.5 mg daily. 4. D5 normal saline was started today because of her hypernatremia at 60 mL/hour. She responded to it well. 5. Risperidone 1 mg at bedtime. 6. Rocephin 1 gram q.24h. 7. Zofran p.r.n. 8. Protonix 40 mg daily. 9. Morphine p.r.n. 10. [place] p.r.n. 11. Coreg 3.125 b.i.d. 12. Tylenol p.r.n. ASSESSMENT AND PLAN: This is a very unfortunate 71-year-old female, very well known to me with history of dementia, overall very debilitated with history of extensive psychiatric disorder i ncluding bipolar disorder, chronic kidney disease, anemia, status post hospitalization for gastroint estinal bleed, and now presented with right hip fracture, acute renal failure and metabolic derangem ent. 1. Status post open reduction internal fixation of the right hip, tolerating it well. Monitor hemo globin and hematocrit. Currently no need for transfusion. Epogen x1 was ordered. Physical therapy as tolerated. 2. Acute renal failure. Continue gentle hydration. Also, patient with hypernatremia responding to D5W. Further recommendations per Dr. Garcia. Also, on Rocephin for urinary tract infection. We will follow up with urine culture results. 3. Thrombocytopenia. Improved as platelets are above 100. We will restart the patient on heparin for deep venous thrombosis prophylaxis. 4. Psychiatric disorder. 5. Anemia, on Epogen Monitor H and H. The patient more hemodiluted may require transfusion prior t o discharge. 6. Continue Protonix for gastrointestinal prophylaxis. 7. Dementia. Continue supportive care. 8. Discontinue Jennings catheter. 9. Hypertension, better controlled with the above regimen as her blood pressure is under control of f ARBs and JUANY inhibitor secondary to hyperkalemia. DISPOSITION: To [facility] hopefully in the a.m. We will follow. Dictated By: ROSA BA/BERTIN Conf#: [id number] DID#: [id number]
[2016-04-26] MEDS: RISPERIDONE 1 MG TAB PO SCH (22:36)
[2016-04-26] MEDS: HEPARIN 5,000 UNIT/0.5 ML SYG SC SCH (22:44)
[2016-04-27] VITALS (8 sets, daily range): BP systolic 116–139; BP diastolic 65–76; PULSE 80–84; RESP 16–19
[2016-04-27] MEDS: DEXTROSE 5% 1,000 ML IV SCH (02:35)
[2016-04-27] MEDS: PANTOPRAZOLE (EC) 40 MG TAB PO SCH (05:54)
[2016-04-27 06:49] LABS: ADD SCAN DIFF NO
[2016-04-27 06:54] LABS: ABNORMAL IP MESSAGE 1; BASOPHIL # 0.1 10^3/ul (0.0-0.1); BASOPHILS % 0.8 % (0.0-2.0); EOSINOPHILS # 0.2 10^3/ul (0.0-0.5); EOSINOPHILS % 2.5 % (0.0-7.0); HEMATOCRIT 28.2 % (37.0-47.0); HEMOGLOBIN 8.8 g/dl (12.0-16.0); LYMPHOCYTES # 1.3 10^3/ul (0.8-2.9); LYMPHOCYTES % 17.6 % (15.0-51.0); MEAN CORPUSCULAR HEMOGLOBIN 31.1 pg (29.0-33.0); MEAN CORPUSCULAR HGB CONC 31.2 g/dl (32.0-37.0); MEAN CORPUSCULAR VOLUME 99.6 fl (82.0-101.0); MEAN PLATELET VOLUME 14.3 fl (7.4-10.4); MONOCYTE # 0.7 10^3/ul (0.3-0.9); MONOCYTES % 9.9 % (0.0-11.0); NEUTROPHIL # 4.4 10^3/ul (1.6-7.5); NEUTROPHILS % 60.4 % (39.0-77.0); PLATELET COUNT 112 10^3/UL (140-415); RED BLOOD COUNT 2.83 10^6/ul (4.20-5.40); RED CELL DISTRIBUTION WIDTH 14.5 % (11.5-14.5); WHITE BLOOD COUNT 7.3 10^3/ul (4.8-10.8)
[2016-04-27 07:05] LABS: POTASSIUM 4.6 mmol/L (3.5-5.1)
[2016-04-27 07:08] LABS: CREATININE 3.45 mg/dl (0.44-1.00)
[2016-04-27 07:09] LABS: CALCIUM 9.5 mg/dl (8.4-10.2); MAGNESIUM 2.1 mg/dl (1.7-2.5); PHOSPHORUS 4.1 mg/dl (2.5-4.9)
[2016-04-27] MEDS: AMLODIPINE 2.5 MG TAB PO SCH (08:45)
[2016-04-27] MEDS: CITALOPRAM 20 MG TAB PO SCH (08:45)
[2016-04-27] MEDS: HYDROCHLOROTHIAZIDE 12.5 MG CAP PO SCH (08:45)
[2016-04-27] MEDS: HEPARIN 5,000 UNIT/0.5 ML SYG SC SCH (08:50)
--- NOTE | 2016-04-27 10:09 | PN ---
DATE: 04/27/2016 SUBJECTIVE: The patient is stable, no acute events overnight. The patient working with [employer]. OBJECTIVE: VITAL SIGNS: Blood pressure 139/72, respiration 18, pulse 83, temperature 98.4. HEENT: Head is normocephalic. NECK: Supple. HEART: Regular rate. LUNGS: Show diminished breath sounds at the base. ABDOMEN: Soft, nontender to palpation without rebound or guarding. EXTREMITIES: Negative for clubbing, cyanosis, no edema. DERMATOLOGIC: No rashes. MUSCULOSKELETAL: No joint effusions. NEUROLOGIC: No change in exam. MEDICATIONS: The patient's medications have been reviewed. LABORATORY DATA: Shows sodium 142, potassium 4.6, chloride 109, BUN , creatinine 3.45. White count 7.3, hemoglobin 8.8, hematocrit 28.2, platelet count is 112. ASSESSMENT AND PLAN: 1. Nonoliguric acute kidney injury on top of chronic kidney disease stage IV/V. Etiology of acute kidney injury was secondary to hemodynamics and tubular injury. The patient's renal function has im proved in the last 24 to 48 hours as it is returning back to baseline. At this point, continue curr ent treatment plan, supportive care, renally dose all meds, no immediate need for renal replacement therapy. 2. Hypernatremia. 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 The patient was started on low dose hydrochlorothiazide. The patient's sodium levels have normalized. We will discontinue D5W and continue to monitor sodium levels closely. 3. Hyperkalemia secondary to acute kidney injury. Chronic kidney disease resolved. The patient is s tatus post Kayexalate. Continue low-potassium diet. 4. Acute encephalopathy and dementia. Etiology is multifactorial. Continue to monitor. 5. History of psychosis. Continue to monitor. 6. Hypertension. Blood pressure controlled. Continue current blood pressure regimen. 7. Anemia. Continue to monitor H and H levels. The patient is status Epogen. 8. Mineral bone disorder. Continue to monitor calcium and phosphorus levels. No need for phosphat e binders. 9. Right intertrochanteric fracture status post ORIF. The patient is currently stable. Continue P T, OT, DVT prophylaxis. 10. GI and deep venous thrombosis prophylaxis. Continue proton pump inhibitor and Lovenox. Dictated By: BASIL HARDWICK/BERTIN Conf#: [id number] DID#: [id number]
--- NOTE | 2016-04-27 10:42 | PN ---
DATE: 04/27/2016 CARDIOLOGY FOLLOWUP SUBJECTIVE: No new cardiac events. Patient remains in sinus rhythm. No chest pain or pressure. N o palpitation. MEDICATIONS: Reviewed. PHYSICAL EXAMINATION: VITAL SIGNS: Temperature 98.9, heart rate of 84, blood pressure is 113/72, respirations 18, saturat ing 95%. HEENT: Normocephalic, atraumatic. No acute distress. Pupils are equal. CARDIOVASCULAR: Regular rate and rhythm, systolic murmur. PULMONARY: With no wheezes anteriorly. No rhonchi. GASTROINTESTINAL: Soft, nontender. EXTREMITIES: No significant edema. NEUROLOGIC: Awake, responds appropriately. PSYCHIATRIC: Appears to be calm at this point. LABORATORY: WBC of 7.3, hemoglobin 8.8, platelets of 112. Sodium 142, potassium 4.6, BUN of 55, cr eatinine 3.45, glucose 102. ASSESSMENT AND PLAN 1. Hip fracture status post surgery. 2. Renal failure. 3. Hyperkalemia has been corrected and improved. 4. Hypernatremia. 5. Encephalopathy, memory impairment, currently stable. 6. History of psych disorder, currently stable. 7. Hypertension, under good control. 8. Anemia, status post transfusion. RECOMMENDATIONS: We will continue with the current cardiac care. Postop care will be continued. D VT prophylaxis will be continued. Dictated By: DINORA LAWTON MD AV/BERTIN Conf#: [id number] DID#: [id number] CC: ROSA GREER MD;*End*
--- NOTE | 2016-04-27 11:44 | PDOCDIS ---
Discharge Instructions CONDITION Patient Condition: Stable HOME CARE INSTRUCTIONS: Special Diet: MECH SOFT ACTIVITY: Activity Restrictions: Slowly Increase Activity FOLLOW UP/APPOINTMENTS Appointments discharge to [facility], see reconciliation ROSA GREER MD Apr 27, 2016 11:44
--- NOTE | 2016-04-27 12:36 | DS ---
DATE OF ADMISSION: 04/19/2016 DATE OF DISCHARGE: 04/27/2016 REASON FOR ADMISSION: 1. Right hip fracture, status post fall. 2. Acute renal failure. 3. Hyperkalemia. 4. Hypernatremia. HOSPITAL COURSE: The patient is a 71-year-old female, very well known to me. She has a h istory of extensive psychiatric disorder, dementia, CKD stage IV, anemia, gastroesophageal reflux di sease and recurrent falls, who sustained unfortunately a mechanical fall where she fell from her whe elchair. She was complaining of right hip pain and she was transferred to [facility] ency Department. Upon arrival the patient underwent extensive workup. Radiographic imaging [facility] revealed an acute right intertrochanteric fracture with varus deformation. She also had a pr evious ORIF of the left hip with intramedullary suresh and dynamic compression screw. [facility] stay the patient was seen by Dr. Minor, the asset specialist, for clearance, and also was seen by Dr. Sangeeta Brennan, the orthopedic physician. On 04/22/2016 the patient underwent open reductio n internal fixation of the intertrochanteric fracture of the right hip. The patient tolerated the p rocedure well. The patient did require a blood transfusion, as her hemoglobin after hydration initia lly went down to 6.7. Initially BUN and creatinine were 65/4.03, with severe hypernatremia with a sodium of 162 and a potassium of 6.0. Patient responded to fluid hydration and blood products. She underwent other diagnostic imaging such as a renal ultrasound which showed bilateral echogenic kidn eys, consistent with medical renal disease, and asymmetric atrophy of the left kidney. In addition, the patient's UA was positive for a UTI on 04/19/2016 and I started the patient on Rocephin. The p atient continues to improve. I restarted the patient's psych meds and the patient appears to be fee ling better. Urine culture is still pending. In the meantime, the patient's H and H remained stabl e and she did not require more transfusions. The Jennings was removed and the patient is tolerating a diet. The patient is losing weight, so I will try to maximize the patient's nutritional status, as the patient's BMI of 18.3 is suggestive of mild to moderate protein malnutrition. The patient will b e discharged to a higher level of care, as the patient will be discharged to a [facility] facil ity for ongoing physical therapy, status post fracture, with the following medications: 1. Tylenol 650 q.6 p.r.n. for pain. 2. Norvasc 2.5 mg daily. 3. Coreg 3.125 b.i.d. 4. Celexa 20 mg daily. 5. Heparin 5000 units subcutaneous q. 12. 6. Hydrochlorothiazide 12.5 daily. 7. [place] 5/325, one tab q.6 p.r.n. 8. Rocephin 1 gram q.24h. for 4 days, to complete the course for a UTI. 9. Zofran 4 mg p.o. q. 4 p.r.n. 10. Protonix 40 mg daily. 11. Risperdal 1 mg at bedtime. 12. Hep-Lock IV fluids. 13. Ferrous sulfate 325 p.o. daily. 14. Ensure 1 can t.i.d., all per RD. Dietitian consult. Physical therapy. FINAL DIAGNOSES: 1. Right hip fracture status post fall. 2. Status post right hip open reduction internal fixation. 3. Anemia, likely both a combination of iron deficiency anemia, status post surgery and anemia of c hronic disease secondary to chronic kidney disease. Again, may benefit from ongoing Epogen administ ration. 4. Chronic kidney disease. 5. Acute renal failure. 6. Prerenal azotemia. 7. Severe hypernatremia 8. Hyperkalemia. 9. Anxiety disorder. 10. Alzheimer's dementia. 11. Hypertension. 12. Thrombocytopenia. Better. 13. History of severe diverticulosis on the left. 14. Elevated CEA at 8.2. 15. Recent gastrointestinal workup, with slightly poor prep. 16. Debilitated state. 17. Mild to moderate protein malnutrition. DIET: Soft mechanical. We will follow closely. Dictated By: ROSA BA/BERTIN Conf#: [id number] DID#: [id number]
[2016-04-27] MEDS: HYDROCODONE/APAP (5/325) TAB PO PRN (15:13)
== END 2016-04-27 15:40 | DRG 480 ==
LOC: E/R 11:21 → TEL 13:56
PROVIDERS: ADMIT Internal Medicine; ATTEND Internal Medicine
PROC: 30233N1 Transfusion of Nonautologous Red Blood Cells into Peripheral Vein, Percutaneous Approach (ICD-10-PCS; 2016-04-20)
PROC: 0QS606Z Reposition Right Upper Femur with Intramedullary Internal Fixation Device, Open Approach (ICD-10-PCS; principal; 2016-04-22 14:30)
DX: S72.141A Displaced intertrochanteric fracture of right femur, initial encounter for closed fracture (principal); G92 Toxic encephalopathy; N17.9 Acute kidney failure, unspecified; E87.0 Hyperosmolality and hypernatremia; E44.0 Moderate protein-calorie malnutrition; Z68.1 Body mass index [BMI] 19.9 or less, adult; I12.0 Hypertensive chronic kidney disease with stage 5 chronic kidney disease or end stage renal disease; N18.5 Chronic kidney disease, stage 5; W05.0XXA Fall from non-moving wheelchair, initial encounter; Y92.129 Unspecified place in nursing home as the place of occurrence of the external cause; G31.84 Mild cognitive impairment of uncertain or unknown etiology; F31.9 Bipolar disorder, unspecified; D63.1 Anemia in chronic kidney disease; E86.0 Dehydration
CPT/HCPCS: 36430; 71010; 72170; 73500; 73510; 73530; 73590; 76775; 80048; 80053; 81001; 81003; 82043; 83735; 83935; 84100; 84155; 84300; 84484; 85025; 85610; 85730; 86850; 86900; 86901; 86920; 87086; 92526; 92610; 93005; 93306; 96361; 96374; 96375; 96376; 97110; 97116; 97162; 97530; C1713; C9113; J0690; J0696; J0886; J1100; J1650; J2250; J2270; J2405; J2710; J3010; J7030; J7040; J7070; P9016

== ENCOUNTER 2017-07-24 11:55 | Inpatient (IN) | END 2017-08-02 18:48 | DRG 673 ==